=== PATIENT | male | born 1930 | race Caucasian/White ===

== ENCOUNTER 2017-04-02 15:44 | Observation (INO) ==
--- NOTE | 2017-04-02 16:45 | Emergency Department Note ---
Disposition Clinical Impression: Acute on chronic renal insufficiency, Anticoagulated on Coumadin Concussion without loss of consciousness Qualifiers: Encounter type: initial encounter Qualified Code(s): S06.0X0A - Concussion without loss of consciousness, initial encounter Fall Qualifiers: Encounter type: initial encounter Qualified Code(s): W19.XXXA - Unspecified fall, initial encounter Laceration of head Qualifiers: Encounter type: initial encounter Location of open wound of head: scalp Foreign body presence: without foreign body Qualified Code(s): S01.01XA - Laceration without foreign body of scalp, initial encounter Disposition: Admitted As Inpatient Condition: Fair Referrals: Travon Cardenas DO [Primary Care Provider] - Forms: ED Satisfaction Letter Time of Disposition: 18:49 Fall HPI - General Chief Complaint: ED Fall Stated Complaint: Fall Time Seen by Provider: 04/02/17 15:46 Source: patient Mode of arrival: EMS Limitations: age Nursing Notes Reviewed: Yes Vital Signs Reviewed: Yes - History of Present Illness HPI Narrative: 86-year-old male history of atrial fibrillation, status post mechanical fall where he tripped on his legs, he fell down and hit the cement with his head. He sustained a laceration to the top of his head. He is brought in by EMS. Patient states he is unsure if he lost consciousness for the fall. Patient also has no neurologic deficits is able to ambulate He denies any pain or injury elsewhere he denies any chest pain shortness of breath abdominal pain. Patient states that he has no slurred speech has no gait weakness. He has been compliant with his Coumadin. Pt Subjective Complaint: fall Onset (ago): Just APPEALS EXAMINER Fall From: standing Place Fall Occurred: home Loss of Consciousness: unsure Prolonged Down Time?: no Context: tripped/slipped Location of injury: head Severity: mild Severity scale (1-10): 3 Associated symptoms (after fall): Reports: headache. Denies: neck pain, numbness, weakness, chest pain, shortness of breath, abdominal pain - Related Data Allergies Allergy/AdvReac Type Severity Reaction Status Date / Time No Known Allergies Allergy Verified 09/27/15 05:31 All systems ED: reviewed and negative except as stated. Review of Systems: As Per HPI Constitutional: Denies: fever, chills Eyes: Denies: eye pain, eye discharge ENT ED: Denies: ear pain, congestion Cardiovascular: Denies: chest pain Respiratory: Denies: cough, dyspnea Gastrointestinal: Denies: abdominal pain Genitourinary: Reports: as per HPI Musculoskeletal: Reports: as per HPI Integumentary: Reports: lesions Neurological: Reports: headache Fall PMH - Past Medical History Medical history: Reports: CVA, hypertension, other Surgical history: Reports: cholecystectomy Psychiatric history: Reports: no psych history - Social History Smoking Status: Former smoker Alcohol use: Reports: none Drug use: Reports: none Physical Exam - General Limitations: no limitations General appearance: alert, in no apparent distress - Expanded Head Exam Head exam physicial: Present: laceration - Eye Eye exam: Present: normal appearance, PERRL - ENT ENT exam: normal exam, normal oropharynx - Neck Neck exam: Present: normal inspection, full ROM - Chest Chest inspection: Present: normal inspection, symmetric chest wall rise - Respiratory Respiratory exam: Present: normal lung sounds bilaterally. Absent: respiratory distress - Cardiovascular Cardiovascular exam: Present: regular rate, normal rhythm - Abdominal Exam Abdominal exam: Present: soft, Non-Tender - Extremities Exam Extremities exam: Present: normal inspection, full ROM - Expanded Lower Extremity Exam Hip/Pelvis exam: Present: normal inspection, full ROM Course Course Narrative: 86-year-old male that is concerning given that he had a mechanical fall but he is 86 years old is on Coumadin and has a history of A. fib, he states that it was not syncopal, we will give basic lab work, CT head and neck placed her placed in a cervical spine collar, plan for repair of his laceration was had tetanus was given also Ancef. - Reevaluation(s) Reevaluation #1: Patient cervical spine was cleared after negative CT imaging, his wound was repaired, I did speak with the hospitalist Dr. Ruby patient will be admitted for observation given fall probable concussion, head laceration and Coumadin Time: 18:48 Vital Signs Temperature 97.6 F 04/02/17 15:46 Pulse Rate 115 04/02/17 15:46 Respiratory Rate 14 04/02/17 15:46 Blood Pressure 177/108 04/02/17 15:46 O2 Sat by Pulse Oximetry 98 04/02/17 15:46 Temperature 97.6 F 04/02/17 15:46 Pulse Rate 115 04/02/17 15:46 Respiratory Rate 14 04/02/17 15:46 Blood Pressure 177/108 04/02/17 15:46 O2 Sat by Pulse Oximetry 98 04/02/17 15:46 Oxygen Delivery Oxygen Delivery Room Air Procedures - Laceration Laceration 1 Site: scalp Side (If applicable): right Size (cm): 6 Description: linear, irregular Depth: simple, single layer Local Anesthetic: lidocaine 1%, with epi Amount of Anesthesia Used (mL): 7 Pre-repair: wound explored, irrigated extensively, deep structures intact, extensive debridement Skin layer closed with: other (Prolene) Size: 4-0 Number of sutures/ofelia: 10 Technique: simple, interrupted Fall - Medical Records Medical records reviewed: Yes I reviewed the patient's medical records. - Lab Data Lab results reviewed: Yes I reviewed the patient's lab results. Result diagrams: 04/02/17 17:23 04/02/17 17:23 Lab Results 04/02/17 04/02/17 04/02/17 Range/Units 17:23 17:23 17:23 WBC 6.5 (4.3-11.1) K/mcL RBC 4.77 (4.19-5.50) M/mcL Hgb 15.2 (12.9-16.9) g/dL Hct 46.7 (37.5-50.1) % MCV 97.9 (83.0-100.0) fL MCH 31.9 (28.0-33.3) pg MCHC 32.5 (31.6-35.5) g/dL RDW 14.2 (11.5-14.5) % Plt Count 139 L (140-400) K/mcL MPV 10.2 (9.4-12.4) fL Immature Gran % 0.3 (0-4) % Seg Neutrophils % 65.9 % Lymphocytes % 19.5 % Monocytes % 10.0 % Eosinophils % 3.8 % Basophils % 0.5 % Neutrophils # 4.3 (1.6-8.9) K/mcL Lymphocytes # 1.3 (0.6-4.6) K/mcL Monocytes # 0.7 (0.0-1.3) K/mcL Eosinophils # 0.3 (0.0-0.6) K/mcL Basophils # 0.0 (0.0-0.2) K/mcL PT 28.6 H (9.4-12.1) Seconds INR 2.6 APTT 35.9 (26.0-36.0) Seconds Sodium 141 (136-145) mEq/L Potassium 4.6 (3.5-5.1) mEq/L Chloride 111 H (98-107) mEq/L Carbon Dioxide 23 (23-29) mEq/L BUN 39 H (8-23) mg/dL Creatinine 2.12 H (0.70-1.30) mg/dL Est GFR ( Amer) 36 L (> 60) Est GFR (Non-Af Amer) 30 L (> 60) BUN/Creatinine Ratio 18 (6-26) Glucose 127 H (70-105) mg/dL Calculated Osmolality 303 H (280-300) Calcium 8.5 L (8.6-10.3) mg/dL - Radiology Data Radiology results reviewed: Yes I reviewed the patient's radiology results. Cervical Spine CT 04/02/17 16:01 IMPRESSION: No acute abnormality of the cervical spine. D/ / Denise Collazo Cha, MD / Denise Collazo Cha, MD Interpreting Provider: Denise Collazo Cha, MD Head CT 04/02/17 16:01 IMPRESSION: No acute intracranial abnormality. D/ / Koby Bower MD / Koby Bower MD Interpreting Provider: Koby Bower MD - EKG Data EKG attestation: Yes I reviewed and interpreted this EKG. Rhythm: A.Fib (A. fib 61 bpm QRS 161 QTC [address] segment elevations or depressions, right bundle-branch blocks and a previous EKG) Interpretation: nonspecific ST-T wave changes - Core Measures AMI Core Measures Followed: No Attestation Statement - Attestation Attestation: I examined this patient and my medical decision-making was reviewed with the Resident Physician, Dr. Jackson. I agree with the documented findings, disposition and treatment plan as described except to the extent set forth below. Patient is a 6-year-old elderly white male who is brought to the emergency department by friends after he sustained a mechanical fall. Patient states he was outside and bent over and just lost his footing causing him to fall forward hitting his head on the concrete. Patient is on Coumadin. Patient's witnessed the fall and states that she thinks he hit the top of his head along a cement curb. Patient sustained a scalp laceration that had some mild wheezing on arrival. Patient denies any syncope or lightheadedness causing the fall, no symptoms at the time of the fall are following. She denies any loss of consciousness. Patient denies any visual changes, no nausea vomiting, no neck pain, no other associated injuries related to the fall. The patient's physical exam findings as documented. Patient's GCS equals 15 and he is awake alert and oriented without focal neuro deficits. Patient had a tetanus update a dressing placed temporarily over the wound after evaluation. Placed in a cervical collar and was sent for CT imaging of the head and neck. CT imaging was unremarkable. Patient's labs show a therapeutic INR. Patient had his laceration repaired please see procedure note. Due to the patient being on Coumadin and sustaining a head injury we recommended he be observed overnight for serial neuro exams and possible repeat imaging. This was discussed with the hospitalist who accepted the patient for admission.
[2017-04-02] MEDS ORDERED: Lidocaine/EPI 1:100k 1% 20 ML VIAL INFILT ONE (17:14)
[2017-04-02] MEDS ORDERED: Tdap (Boostrix) Vaccine 0.5 ML SYRINGE IM ONE (17:24)
[2017-04-02] MEDS ORDERED: ceFAZolin 1,000 MG in Water for inj. (sterile) 10 ML IVP ONE (17:28)
[2017-04-02 17:30] LABS: Basophils % 0.5 %; Eosinophils # 0.3 K/mcL (0.0-0.6); Eosinophils % 3.8 %; Hematocrit 46.7 % (37.5-50.1); Hemoglobin 15.2 g/dL (12.9-16.9); Immature Granulocytes % 0.3 % (0-4); Lymphocytes # 1.3 K/mcL (0.6-4.6); Lymphocytes % 19.5 %; Mean Corpuscular HGB Conc 32.5 g/dL (31.6-35.5); Mean Corpuscular Hemoglobin 31.9 pg (28.0-33.3); Mean Corpuscular Volume 97.9 fL (83.0-100.0); Mean Platelet Volume 10.2 fL (9.4-12.4); Monocytes # 0.7 K/mcL (0.0-1.3); Neutrophils # 4.3 K/mcL (1.6-8.9); Platelet Count 139 K/mcL (140-400); Red Blood Count 4.77 M/mcL (4.19-5.50); Red Cell Distribution Width 14.2 % (11.5-14.5); Segmented Neutrophils % 65.9 %
[2017-04-02 17:36] LABS: INR 2.6; Prothrombin Time 28.6 Seconds (9.4-12.1)
[2017-04-02 17:39] LABS: Activated Partial Thrombo Time 35.9 Seconds (26.0-36.0)
[2017-04-02 17:48] LABS: Calcium 8.5 mg/dL (8.6-10.3); Potassium 4.6 mEq/L (3.5-5.1)
[2017-04-02] MEDS ORDERED: ceFAZolin 1,000 MG in Water for inj. (sterile) 20 ML 10 ML IVP ONE (19:00)
[2017-04-02] MEDS ORDERED: *HR* HYDROcodone/Acet 5/325 mg TABLET PO PRN (20:14)
[2017-04-02] MEDS ORDERED: Naloxone 0.4 MG/ML INJ IVP PRN (20:14)
[2017-04-02] MEDS ORDERED: Acetaminophen 325 MG TABLET PO PRN (20:14)
[2017-04-02] MEDS ORDERED: *HR* Morphine 2 MG/ML SYRINGE IVP PRN (20:14)
[2017-04-02] MEDS ORDERED: Ondansetron 4 MG/2 ML VIAL IVP PRN (20:14)
--- NOTE | 2017-04-02 20:26 | Internal Med History&Physical ---
<Jim Scott - Last Filed: 04/02/17 21:05> Date of Encounter: 04/02/17 Time of Encounter: 19:45 Assessment and Plan (1) Fall Current visit: Yes Status: Acute Acute fall sustained tonight when pt. reports he was retrieving newspaper from front porch. Pt. states his legs became tangled when he turned to go inside. Denies LOC, pre-syncope, dizziness, lightheadedness, or previous hx of falls. Pt. sustained laceration to top of head and right knee. CT of the head/brain w/ o contrast shows no acute intracranial abnormality. CT of the cervical spine shows no acute abnormality of the cervical spine. 3-View XR of the right knee ordered. Falls/safety precautions ordered. PT/OT consults ordered to assess pt. for ambulation strength, stability, and safety for post-discharge planning. Will continue pts. Coumadin w/pharmacy dosing and monitor for signs of bleeding. Pt. discussed w/Dr. Parsons who is in agreement w/plan of care. Pt. is high risk for further morbidity d/t recent fall on anticoagulation, current HTN and tachycardia, hx, and risk factors. Observation. Qualifiers: Encounter type: initial encounter Qualified Code(s): W19.XXXA - Unspecified fall, initial encounter (2) Laceration of head Current visit: Yes Status: Acute Acute laceration to top of head sustained from fall tonight. Pt. is currently anticoagulated w/Coumadin. Pt. received Tdap Boostrix in ED. CT of the head/ brain without contrast today shows no acute intracranial abnormality. Neuro checks Q2HR. Will monitor pt. for neuro changes and/or bleeding. Falls/safety precautions. Qualifiers: Encounter type: initial encounter Location of open wound of head: scalp Foreign body presence: without foreign body Qualified Code(s): S01.01XA - Laceration without foreign body of scalp, initial encounter (3) Right knee injury Current visit: Yes Status: Acute Acute injury to right knee sustained from fall tonight. Knee is erythematous and edematous on exam. 3-View XR ordered. Qualifiers: Encounter type: initial encounter Qualified Code(s): S89.91XA - Unspecified injury of right lower leg, initial encounter (4) Hypocalcemia Current visit: Yes Status: Acute Acute hypocalcemia w/calcium of 8.5 on admission. PO calcium carbonate 1,000 mg TID. Monitor f/u labs. (5) Hyperglycemia Current visit: Yes Status: Acute Acute hyperglycemia on admission. Pt. denies hx of DM. BG checks Q6 w/ communication order to discontinue after normal BG. A1c in a.m. labs. (6) CKD (chronic kidney disease) stage 3, GFR 30-59 ml/min Current visit: Yes Status: Chronic Hx of CKD. Pt. is currently stage 3 w/GFR of 30 and creatinine of 2.12. Will use IV fluids judiciously if warranted and avoid nephrotoxins. Monitor I&O. (7) HTN (hypertension) Current visit: Yes Status: Chronic Hx of chronic HTN. Monitor pt. and VS. continue patient's amlodipine and metoprolol. Hypertension on admission with BPs 177/108 and 165/105 most recent. We will add lisinopril 10 mg no. Hydralazine 10 mg every 6 when necessary SBP greater than 160 and/or DBP greater than 95. Patient is tachycardic on admission so will administer home dosing of metoprolol now. Continuous cardiac telemetry. Qualifiers: Hypertension type: essential hypertension Qualified Code(s): I10 - Essential (primary) hypertension (8) HLD (hyperlipidemia) Current visit: Yes Status: Chronic Hx of chronic HLD. Lipid panel in a.m. labs. Continue pts. Lovastatin. Qualifiers: Hyperlipidemia type: pure hypercholesterolemia Qualified Code(s): E78.00 - Pure hypercholesterolemia, unspecified; E78.0 - Pure hypercholesterolemia (9) GERD (gastroesophageal reflux disease) Current visit: Yes Status: Chronic Hx of chronic GERD. IVP Zofran 4 mg Q8 for N/V. Continue patient's Prilosec. Qualifiers: Esophagitis presence: esophagitis presence not specified Qualified Code(s) : K21.9 - Gastro-esophageal reflux disease without esophagitis (10) DVT prophylaxis Current visit: Yes Status: Acute Continue patient's Coumadin with pharmacy dosing for DVT prophylaxis. Monitor patient for signs of bleeding d/t fall. Internal Medicine - H&P: HPI Chief complaint: Fall Admitted From: Emergency Dept Plans for Post Hospital Care: Home History of present illness: Mr. Levi is a 86 year old male with medical hx of previous strokes 2 in 2008 2013, chronic kidney disease, chronic heart murmur, HLD, and HTN presents from the ED with chief complaint of fall that occurred this evening. Patient states he went out to [employer] to retrieve newspaper and fell when he turned to go back into the house. Patient denies previous history of falls, loss of consciousness, feelings of presyncope, dizziness, or lightheadedness. Patient reports cough but denies recent illness, fever, chills, nausea, vomiting, changes in vision, headache, weakness, fatigue, chest pain, palpitations, unusual bleeding, abdominal pain, dizziness, lightheadedness, numbness, tingling , pre-syncope, or syncope. Past Med Surg Social Fam HX - Past Medical History Source: patient, old records reviewed, obtained from family Medical history: CVA (x2 in 2008 and 2013), hyperlipidemia, hypertension, renal disease, other Psychiatric history: no psych history - Past Surgical History Surgical History: cholecystectomy - Social History Smoking Status: Former smoker Smokeless Tobacco Status: No Alcohol use: none Drug use: none Current living situation: Home Activity Level: Independent ambulation Recent Out of Country Travel Within the Last 8 Weeks: No Exposure or Possible Exposure to Illness During Travel: No - Family History Father Race: Family Member Ethnicity: Non- Living Status: Age at : 68 Cause of : Stroke Hx Family Cardiac Disorders: Yes (Stroke) Mother Race: Family Member Ethnicity: Non- Living Status: Age at : 35 Cause of : Pneumonia Hx Family Respiratory Disorders: Yes (Pneumonia) Brother Race: Family Member Ethnicity: Non- Living Status: Age at : 88 Cause of : OR Hx Family Cardiac Disorders: Yes (OR, CAD) Sister Race: Family Member Ethnicity: Non- Living Status: Age at : 86 Cause of : Pancreatic cancer Hx Family Cancer: Yes (Pancreatic) Internal Medicine - H&P: Meds Amlodipine Besylate 10 mg PO 04/02/17 [History] Aspirin [Lo-Dose Aspirin EC] 81 mg PO 04/02/17 [History] Lovastatin [Altoprev] 40 mg PO 04/02/17 [History] Metoprolol [Lopressor] 100 mg PO 04/02/17 [History] Omeprazole [PriLOSEC] 20 mg PO DAILY 04/02/17 [History] Warfarin [Coumadin] 4 mg PO 1800 04/02/17 [History] Warfarin [Coumadin] 5 mg PO 1800 04/02/17 [History] 3 Allergy/AdvReac Type Severity Reaction Status Date / Time No Known Allergies Allergy Verified 09/27/15 05:31 All Systems PM: A 10-system review of systems was performed and is negative for pertinent findings except as documented above in the HPI. - Constitutional Constitutional: no chills, no fever(s), no night sweats - EENT Eyes: no change in vision, no discharge, no pain, no photophobia Ears: no ear discharge, no ear pain, no tinnitus Nose, mouth and throat: no dysphagia, no nasal discharge, no neck pain, no sore throat - Breasts Breasts: as per HPI - Cardiovascular Cardiovascular ROS IM: as per HPI, irregular heart rhythm, no chest pain, no diaphoresis, no dyspnea, no lightheadedness, no palpitations, no syncope - Respiratory Respiratory: as per HPI, cough, no dyspnea, no wheezing, no excessive phlegm production - Gastrointestinal Gastrointestinal: no abdominal pain, no diarrhea, no hematemesis, no hematochezia, no melena, no nausea, no vomiting - Genitourinary Genitourinary ROS male: as per HPI - Musculoskeletal Musculoskeletal ROS IM: no numbness, no tingling - Integumentary Integumentary IM: erythema (Top of head and right knee r/t fall tonight), no rash, no unusual bruising - Neurological Neurological ROS: no confusion, no convulsions, no focal weakness, no numbness, no tingling, no tremor(s) - Psychiatric Psychiatric: as per HPI - Endocrine Endocrine IM: as per HPI - Hematologic/Lymphatic Hematologic/Lymphatic: no easy bruising - Allergic/Immunologic Allergic/Immunologic: as per HPI - Constitutional Vitals: Temp Pulse Resp BP Pulse Ox 97.6 F 115 14 165/105 98 04/02/17 15:46 04/02/17 15:46 04/02/17 19:32 04/02/17 19:32 04/02/17 15:46 General appearance: Present: cooperative, A&O X 3, pleasant, no acute distress, answers questions appropriately - Head Additional comments: Top of head has laceration with dried blood on exam. Pt. reports he struck his head when he fell. - Eye Eye exam: Present: PERRL, conjuntiva pink, sclera anicteric Pupils: Present: PERRL - ENT ENT exam: Present: normal exam - Neck Neck exam general surgery: Present: normal inspection, supple, trachea midline. Absent: lymphadenopathy - Respiratory Respiratory exam: Present: CTAB. Absent: accessory muscle use, rales, rhonchi, wheezes - Cardiovascular Cardiovascular exam: Present: irregular rhythm - GI/Abdominal GI/Abdominal exam: Present: normal bowel sounds, soft, no peritoneal signs. Absent: distended, tenderness - Rectal Rectal exam: Present: deferred - Additional comments: exam deferred. - Extremities Exam Extremities exam: Present: tenderness (Right knee is erythematous and edematous from fall), warm, radial pulses palpable and symmetrical. Absent: calf tenderness, cyanotic, pedal edema - Back Exam Back exam: Present: normal inspection - Neurological Exam Neurological exam: Present: CN II-XII intact, oriented X3, no focal deficits. Absent: pronater drift, facial droop, speech deficit - Psychiatric Psychiatric exam: Present: normal affect, normal mood - Skin Skin exam: Present: dry, intact Internal Med - H&P Results - Labs CBC & Chem 7: 04/02/17 17:23 04/02/17 17:23 - Diagnostic Studies CT scan - head Additional comments: Impressions Head CT 04/02/17 16:01 IMPRESSION: No acute intracranial abnormality. D/ / Koby Bower MD / Koby Bower MD Interpreting Provider: Koby Bower MD Other Images Additional comments: Impressions Cervical Spine CT 04/02/17 16:01 IMPRESSION: No acute abnormality of the cervical spine. D/ / Denise Collazo Cha, MD / Denise Collazo Cha, MD Interpreting Provider: Denise Collazo Cha, MD <Jakub Sabillon H - Last Filed: 04/02/17 21:14> Date of Encounter: 04/02/17 Internal Medicine - H&P: HPI History of present illness: Mr. Levi is a 86 year old male All Systems PM: A 10-system review of systems was performed and is negative for pertinent findings except as documented above in the HPI. - Constitutional Vitals: Temp Pulse Resp BP Pulse Ox 97.6 F 115 14 165/105 98 04/02/17 15:46 04/02/17 15:46 04/02/17 19:32 04/02/17 19:32 04/02/17 15:46 Internal Med - H&P Results - Labs CBC & Chem 7: 04/02/17 17:23 04/02/17 17:23 - Attending Attestation 1. Head trauma/scalp laceration, sutured in the ER with perfuse bleeding secondary to elevated INR Monitor tonight, fall precautions 2. Right knee injury, x-rays have been ordered 3. History of CVA on Coumadin 4. Chronic kidney disease stage III, stable with a creatinine close to baseline 5. Hypertension, add hydralazine IV as needed and start lisinopril 10 mg daily Omeprazole for GI prophylaxis and Coumadin for DVT prophylaxis. The patient will be admitted for observation. Full code. Time spent on this admission 40 minutes I examined this patient and my medical decision-making was reviewed with the Resident Physician. I agree with the documented findings, disposition and treatment plan as described except to the extent set forth below.
--- NOTE | 2017-04-02 20:49 | Event Note ---
Date of Encounter: 04/02/17 Time of Encounter: 20:47 1. Head trauma/scalp laceration, sutured in the ER with perfuse bleeding secondary to elevated INR Monitor tonight, fall precautions 2. Right knee injury, x-rays have been ordered 3. History of CVA on Coumadin 4. Chronic kidney disease stage III, stable with a creatinine close to baseline 5. Hypertension, add hydralazine IV as needed and start lisinopril 10 mg daily Omeprazole for GI prophylaxis and Coumadin for DVT prophylaxis. The patient will be admitted for observation. Full code. Time spent on this admission 40 minutes H&P will be completed by Jim Scott NP
[2017-04-03 06:31] LABS: Basophils % 0.5 %; Eosinophils # 0.3 K/mcL (0.0-0.6); Eosinophils % 3.4 %; Hematocrit 46.9 % (37.5-50.1); Hemoglobin 15.5 g/dL (12.9-16.9); Immature Granulocytes % 0.3 % (0-4); Lymphocytes # 1.6 K/mcL (0.6-4.6); Lymphocytes % 20.3 %; Mean Corpuscular Hemoglobin 32.1 pg (28.0-33.3); Mean Corpuscular Volume 97.1 fL (83.0-100.0); Mean Platelet Volume 10.2 fL (9.4-12.4); Monocytes # 0.8 K/mcL (0.0-1.3); Monocytes % 9.7 %; Neutrophils # 5.2 K/mcL (1.6-8.9); Platelet Count 137 K/mcL (140-400); Red Blood Count 4.83 M/mcL (4.19-5.50); Red Cell Distribution Width 14.3 % (11.5-14.5); Segmented Neutrophils % 65.8 %
[2017-04-03 06:33] LABS: Hemoglobin A1C 5.3 %
[2017-04-03 06:39] LABS: Albumin 3.4 g/dL (3.5-5.7); Albumin/Globulin Ratio 0.9 (1.1-2.2); Bilirubin,Total 0.8 mg/dL (0.3-1.0); Calcium 8.8 mg/dL (8.6-10.3); Chol/HDL Ratio 4.9 (0-4.9); Globulin 3.6 g/dL (2.4-3.5); Magnesium 2.1 mg/dL (1.6-2.6); Potassium 4.1 mEq/L (3.5-5.1)
[2017-04-03 06:46] LABS: INR 2.3; Prothrombin Time 25.7 Seconds (9.4-12.1)
[2017-04-03 06:49] LABS: Activated Partial Thrombo Time 33.4 Seconds (26.0-36.0)
--- NOTE | 2017-04-03 09:48 | Electrocardiograph Report ---
[place] [id number] Test Date: 2017-04-02 Pat Name: Oniel Levi Department: 104 Room: 3B13 Gender: M Nickel Operator: : 1930 Requested By: Clemente Jackson Order Number: [id number] Reading MD: Bethany Fofana Measurements Intervals [place] Rate: 61 P: GA: 0 QRS: -57 QRSD: 161 T: -30 QT: 423 QTc: 426 Interpretive Statements ATRIAL FIBRILLATION RIGHT BUNDLE BRANCH BLOCK [120+ ms QRS DURATION, UPRIGHT V1, 40+ ms S IN I/aVL/V4/V5/V6] INFERIOR MYOCARDIAL INFARCTION [40+ ms Q WAVE AND/OR ST/T ABNORMALITY IN II/aVF], OF INDETERMINATE AGE Electronically Signed On 04-03-2017 9:46:33 EST by Bethany Fofana
[2017-04-03] MEDS ORDERED: Warfarin perPT PO PRN (18:00)
[2017-04-03] MEDS ORDERED: *HR* Warfarin 4 MG TABLET PO ONE (18:00)
--- NOTE | 2017-04-03 18:09 | Discharge Summary ---
Date of Encounter: 04/03/17 Time of Encounter: 11:00 - Discharge Diagnosis (1) Fall Priority: Primary Status: Acute Qualifiers: Encounter type: initial encounter Qualified Code(s): W19.XXXA - Unspecified fall, initial encounter - Discharge Medications Home Medications: Aspirin [Lo-Dose Aspirin EC] 81 mg PO DAILY 04/02/17 [History] Metoprolol [Lopressor] 200 mg PO DAILY 04/02/17 [History] Omeprazole [PriLOSEC] 40 mg PO DAILY 04/02/17 [History] Warfarin [Coumadin] 4 mg PO Q48H 04/02/17 [History] Warfarin [Coumadin] 5 mg PO Q48H 04/02/17 [History] Amlodipine Besylate/Benazepril [Lotrel 5-20 mg Capsule] 1 each PO DAILY [History] Lovastatin 40 mg PO HS 04/03/17 [History] Allergies/Adverse Reactions: 3 Allergy/AdvReac Type Severity Reaction Status Date / Time No Known Allergies Allergy Verified 09/27/15 05:31 Date of admission: 04/02/17 19:05 Primary care physician: Travon Cardenas Consults: 04/02/17 20:16 Consult to Occupational Therapy [CONS] Routine Comment: Evaluate, develop and implement POC Reason for Consult: Patient had fall today injuring head and right knee. Please assess patient for ambulation strength, stability, safety, and possible home assistive needs for post-discharge planning. Consult to Banquet Kitchen Supervisor [CONS] Routine Reason for SW Consult: Please assess patient for possible home needs for post -discharge planning. 04/02/17 20:18 Consult to Physical Therapy [CONS] Routine Comment: Evaluate, develop and implement POC Reason for Consult: Patient had fall today injuring head and right knee. Please assess patient for ambulation strength, stability, safety, and possible home assistive needs for post-discharge planning. - Patient Status Disposition: Home Health Service Condition: Fair - Discharge Instructions Follow Up With: Travon Cardenas DO [Primary Care Provider] - Hospital course: Patient is an 86-year-old male with past medical history significant for 2 prior strokes in 2008 and 2013 in addition of CJD, HLD and hypertension who presented to the ER on 04/02/17 due to mechanical fall. Patient states he went out to porch to retrieve newspaper and fell when he turned to go back into the house. Patient denies previous history of falls, loss of consciousness, feelings of presyncope, dizziness, or lightheadedness. In the ER, patient was found to have a scalp laceration which was sutured. No acute finding on imaging. Patient was admitted to the medical floor for further management. During patients hospital stay physical therapy evaluated patient with recommendations for home health. He will be discharged to follow up with his primary care provider. - Time Spent with Patient Total time spent providing and/or coordinating discharge services: Less than 30 minutes - Constitutional Vitals: Temp Pulse Resp BP Pulse Ox 98.3 F 99 16 138/92 94 04/03/17 15:01 04/03/17 15:01 04/03/17 15:01 04/03/17 15:01 04/03/17 15:01 General appearance: Present: cooperative, A&O X 3, pleasant, no acute distress, answers questions appropriately - Respiratory Respiratory exam: Present: CTAB. Absent: accessory muscle use, rales, rhonchi, wheezes - Cardiovascular Cardiovascular exam: Present: RRR, +S1, +S2. Absent: diastolic murmur, gallop, rubs, systolic murmur
[2017-04-03 18:29] VITALS: BP 122/71
--- NOTE | 2017-04-07 09:15 | Physician Discharge Referral ---
Home Health/Hosp Referral Info Attending Provider: Dr Rob Walker - Diagnosis (1) Fall Priority: Primary Status: Acute (2) HLD (hyperlipidemia) Priority: Secondary Status: Chronic (3) HTN (hypertension) Priority: Secondary Status: Chronic - Respiratory Orders Smoking Cessation: Smoking cessation has been advised. For more information, call the [place] Tobacco Quit Line at 2-163-GEEO-NOW. - Services Needed Following services are medically necessary services: Nursing, Physical Therapy - Transfer Medications Home Medications: Aspirin [Lo-Dose Aspirin EC] 81 mg PO DAILY 04/02/17 [History] Metoprolol [Lopressor] 200 mg PO DAILY 04/02/17 [History] Omeprazole [PriLOSEC] 40 mg PO DAILY 04/02/17 [History] Warfarin [Coumadin] 4 mg PO Q48H 04/02/17 [History] Warfarin [Coumadin] 5 mg PO Q48H 04/02/17 [History] Amlodipine Besylate/Benazepril [Lotrel 5-20 mg Capsule] 1 each PO DAILY [History] Lovastatin 40 mg PO HS 04/03/17 [History] Allergies/Adverse Reactions: 3 Allergy/AdvReac Type Severity Reaction Status Date / Time No Known Allergies Allergy Verified 09/27/15 05:31 Certification: Further, I certify that my clinical findings support that this patient is homebound (i.e. absences from home require considerable and taxing effort and are for medical reasons or quaker services or infrequently or short duration when for other reasons) because: Homebound Reason: Leaving home requires considerable and taxing effort due to condition Attestation: My signature below is to certify that this patient is under my care and that I, or nurse practitioner, or a physician's occupational therapist assistants working with me, has a face-to -face encounter with this patient.
== END 2017-04-03 19:30 | disposition home health service (06) ==
LOC: 3BNU 15:44 → EMEROO 15:44 → SUATTDRO 19:05 → 3BNU 19:23
PROVIDERS: ADMIT Hospitalist; ATTEND Hospitalist

== ENCOUNTER 2018-04-02 08:38 | Inpatient (IN) ==
[2018-04-02] MEDS ORDERED: Isovue-370 500 ML INFUS..BTL IV ONE (08:59)
--- NOTE | 2018-04-02 09:00 | Emergency Department Note ---
Disposition Clinical Impression: Hypoxia Atrial fibrillation Qualifiers: Atrial fibrillation type: unspecified Qualified Code(s): I48.91 - Unspecified atrial fibrillation Disposition: Admitted As Inpatient Condition: Fair Referrals: Travon Cardenas DO [Primary Care Provider] - General Adult HPI - General Stated complaint: JESSENIA Time Seen by Provider: 04/02/18 08:39 Source: EMS Limitations: no limitations - History of Present Illness HPI Narrative: Patient is a 87-year-old male with medical hx of previous strokes 2 in 2008 2013,GERD, hypothyroidism, COPD (not on home O2) peripheral vascular disease, AAA, carotid stenosis , chronic A. fib (on Coumadin 4mg ) , chronic kidney disease, HLD, and HTN who presents to the ED because of shortness of breath. Patient endorses having shortness of breath, increase in the frequency of his cough along with productive white sputum for the past 6 weeks. Patient says he takes Ventolin HFA for his COPD symptoms and felt the need to use it more often the last couple days, but it's not been helping. Patient was treated for URI on 02/20/2018and completed course of Amoxycillin 875 mg for 7 days. He has not been hospitalized recently for his COPD symptoms. He denies any orthopnea, PND, but does endorse some having difficulty walking 2 blocks for the last couple weeks. Patient denies any recent travels and denies any systemic signs like fever, chest pain, diarrhea vomiting or nausea. Pain Scale: 0 - Related Data Home Medications Medication Instructions Recorded Confirmed Aspirin [Lo-Dose Aspirin EC] 81 mg PO DAILY 04/02/17 04/03/17 Metoprolol [Lopressor] 200 mg PO DAILY 04/02/17 04/03/17 Omeprazole [PriLOSEC] 40 mg PO DAILY 04/02/17 04/03/17 Warfarin [Coumadin] 4 mg PO Q48H 04/02/17 04/03/17 Amlodipine Besylate/Benazepril 1 each PO DAILY 04/03/17 04/03/17 [Lotrel 5-20 mg Capsule] Lovastatin 40 mg PO HS 04/03/17 04/03/17 Albuterol Sulfate [Ventolin Hfa] 2 puff IH Q6H PRN 04/02/18 04/02/18 Levothyroxine [Synthroid] 25 mcg PO DAILY 04/02/18 04/02/18 Multivitamin [One Daily Essential] 1 tab PO DAILY 04/02/18 04/02/18 Allergies Allergy/AdvReac Type Severity Reaction Status Date / Time No Known Allergies Allergy Verified 09/27/15 05:31 Constitutional: Denies: fever Cardiovascular: Denies: chest pain Respiratory: Reports: cough, wheezes. Denies: hemoptysis Gastrointestinal: Denies: abdominal pain Genitourinary: Denies: urgency Musculoskeletal: Denies: back pain Integumentary: Denies: rash Neurological: Denies: headache Psychiatric: Denies: anxiety Endocrine: Denies: fatigue Past Medical History - Past Medical History Medical history: Reports: atrial fibrillation, CVA, hyperlipidemia, hypertension , renal disease, other Surgical history: Reports: cholecystectomy Psychiatric history: Reports: no psych history - Social History Smoking Status: Former smoker Smokeless Tobacco Status: No Alcohol use: Reports: none Drug use: Reports: none Physical Exam Gen.: Vitals noted. No acute distress. Alert, awake and oriented * [address], [address], and time, well developed, well-nourished resting comfortably in bed. HEENT: oropharynx clear, Normocephalic, atraumatic, MMM. Neck: supple, no JVD, no lymphadenopathy, no carotid bruit. Cardiac: irregular, no murmur, +S1/S2, No BLE edema, PMI non-displaced Pulmonary: bilaterally expiratory wheezes, decreased breath sounds bilaterally, no rales or rhonchi. Abdomen: soft, nontender, BS noted, no guarding, mildly distended. No organomegaly, no pulsatile masses, Back: no Bilateral flank tenderness, no suprapubic pain Skin: warm and dry, no visible lesions. Feels warm, clammy, no rashes, no lesions, no erythema MSK: ROM not assessed. no joint swelling noted, gait not assessed while in bed. Non tender calf or clubbing, no cyanosis/clubbing. Bilateral edema (L >R) Neuro: A&O, moves all extremities, no focal deficits, sensation intact Psych: Appropriate mood and behavior, normal speech. - General Limitations: no limitations General appearance: alert Course Vital Signs Temperature 97.6 F 04/02/18 08:42 Pulse Rate 130 04/02/18 08:42 Respiratory Rate 26 04/02/18 08:42 Blood Pressure 187/112 04/02/18 08:42 O2 Sat by Pulse Oximetry 95 04/02/18 08:42 Temperature 97.6 F 04/02/18 08:42 Pulse Rate 115 04/02/18 12:15 Respiratory Rate 26 04/02/18 12:15 Blood Pressure 148/101 04/02/18 12:15 O2 Sat by Pulse Oximetry 100 04/02/18 12:15 Oxygen Delivery Oxygen Delivery Bipap Medical Decision Making - [facility] Narrative Medical decision making narrative: 0940 : Patient's chest x-ray showed interval increase in size in the right- sided pleural effusion with the likely unchanged small left pleural effusion. CXR also showed bibasilar atelectasis more on the right than left. 1005: Patient's initial workup showed that his white blood count and lactic acid was normal. Patient's BNP was elevated at 459. Results from the CTA showed multifocal bibasilar consolidation, along with concerns for mucous plug. Bronchoscopy was warranted by the radiologist. Patient was given IV Lasix and Nitroglycerine for his pulmonary edema. 1115: Spoke to Dr Kevin Fink about patient's CTA findings and he'll evaluate the patient once admitted. Patient was started on vancomycin and Zosyn for his multifocal pneumonia. He's on BiPAP to help with his V/Q mismatch (secondary to his multifocal pneumonia and pleural effusion). 1156: spoke to the admitting hospitalist Dr Celaya and patient will be admitted for further management. Patient's most recent heart rate was 137 and will be given 10mg IV Labetolol. 1243: Patient's venous Doppler of lower extremity was negative for evidence of DVT or SVT. Patient presents to the ED because of progressively increasing cough and white sputum for the past 6 weeks. He says his bronchodilators have not helped him with his symptoms the last few days. Patient is tachycardic, tachypnic and on physical exam he has bilateral expiratory wheezing and edema in lower extremities left more than right with concerns for PNA/CHF/DVT. Patient meets 2/ 4 SIRS criteria in the ED (HR: 130, RR: 26). With his WELLS' score of 4.5 today ( 3 points for PE being the most likely diagnosis , 1.5 point for heart rate more than 100 ), we will get a CTA on him to rule any evidence of PE. We will also get a venous Doppler of the lower extremities to rule out any evidence of D VT. Patient endorses SOB when ambulating 2 blocks , therefore we will get a BNP on him to rule out any heart strain. Patient has an INR of 5.6, no evidence of any bleeding at the moment, and by guidelines no indications for any Vit K at the moment. Given his co-morbidities and clinical presentation, patient will be admitted to the hospital for further evaluation. - Lab Data Result diagrams: 04/02/18 09:28 04/02/18 09:28 Lab Results 04/02/18 04/02/18 04/02/18 Range/Units 09:28 09:28 09:28 WBC 8.8 (4.3-11.1) K/mcL RBC 4.17 L (4.19-5.50) M/mcL Hgb 12.7 L (12.9-16.9) g/dL Hct 40.1 (37.5-50.1) % MCV 96.2 (83.0-100.0) fL MCH 30.5 (28.0-33.3) pg MCHC 31.7 (31.6-35.5) g/dL RDW 18.0 H (11.5-14.5) % Plt Count 179 (140-400) K/mcL MPV 10.0 (9.4-12.4) fL Immature Gran % 0.5 (0-4) % Seg Neutrophils % 83.3 % Lymphocytes % 8.6 % Monocytes % 5.9 % Eosinophils % 1.1 % Basophils % 0.6 % Neutrophils # 7.3 (1.6-8.9) K/mcL Lymphocytes # 0.8 (0.6-4.6) K/mcL Monocytes # 0.5 (0.0-1.3) K/mcL Eosinophils # 0.1 (0.0-0.6) K/mcL Basophils # 0.1 (0.0-0.2) K/mcL PT (9.4-12.1) Seconds INR APTT (26.0-36.0) Seconds Sodium 144 (136-145) mEq/L Potassium 3.6 (3.5-5.1) mEq/L Chloride 111 H (98-107) mEq/L Carbon Dioxide 21 L (23-29) mEq/L BUN 16 (8-23) mg/dL Creatinine 1.48 H (0.70-1.30) mg/dL Est GFR ( Amer) 54 L (> 60) Est GFR (Non-Af Amer) 45 L (> 60) BUN/Creatinine Ratio 11 (6-26) Glucose 111 H (70-105) mg/dL Calculated Osmolality 300 (280-300) Lactic Acid (0.5-2.2) mmol/L Calcium 8.0 L (8.6-10.3) mg/dL Phosphorus (2.7-4.5) mg/dL Magnesium (1.6-2.6) mg/dL Total Bilirubin (0.3-1.0) mg/dL Direct Bilirubin (0.0-0.2) mg/dL Indirect Bilirubin (0.0-1.2) mg/dL AST (13-39) Units/L ALT (7-52) Units/L Alkaline Phosphatase (34-104) Units/L Troponin I < 0.03 (< 0.04) ng/mL B-Natriuretic Peptide 459 H (Less than 100) pg/mL Serum Total Protein (6.4-8.9) g/dL Albumin (3.5-5.7) g/dL Globulin (2.4-3.5) g/dL Albumin/Globulin Ratio (1.1-2.2) Urine Color (Yellow) Urine Clarity (Clear) Urine pH (5.0-8.0) pH Units Ur Specific [place] (1.010-1.025) Urine Protein (Neg-Trace) mg/dL Urine Glucose (UA) (Normal) mg/dL Urine Ketones (Negative) mg/dL Urine Blood (Negative) Urine Nitrite (Negative) Urine Bilirubin (Negative) Urine Urobilinogen (Normal) mg/dL Ur Leukocyte Esterase (Negative) Urine Microscopic RBC (0-3) per hpf Urine Microscopic WBC (0-3) per hpf Ur Squamous Epith Cells (None-Few) per lpf Urine Bacteria (None-Few) per hpf Hyaline Casts (None-Few) per lpf Ur Culture Indicated? (NO) Blood Type Antibody Screen 04/02/18 04/02/18 04/02/18 Range/Units 09:28 09:28 09:28 WBC (4.3-11.1) K/mcL RBC (4.19-5.50) M/mcL Hgb (12.9-16.9) g/dL Hct (37.5-50.1) % MCV (83.0-100.0) fL MCH (28.0-33.3) pg MCHC (31.6-35.5) g/dL RDW (11.5-14.5) % Plt Count (140-400) K/mcL MPV (9.4-12.4) fL Immature Gran % (0-4) % Seg Neutrophils % % Lymphocytes % % Monocytes % % Eosinophils % % Basophils % % Neutrophils # (1.6-8.9) K/mcL Lymphocytes # (0.6-4.6) K/mcL Monocytes # (0.0-1.3) K/mcL Eosinophils # (0.0-0.6) K/mcL Basophils # (0.0-0.2) K/mcL PT 63.2 H* (9.4-12.1) Seconds INR 5.6 H* APTT 46.2 H (26.0-36.0) Seconds Sodium (136-145) mEq/L Potassium (3.5-5.1) mEq/L Chloride (98-107) mEq/L Carbon Dioxide (23-29) mEq/L BUN (8-23) mg/dL Creatinine (0.70-1.30) mg/dL Est GFR ( Amer) (> 60) Est GFR (Non-Af Amer) (> 60) BUN/Creatinine Ratio (6-26) Glucose (70-105) mg/dL Calculated Osmolality (280-300) Lactic Acid 1.3 (0.5-2.2) mmol/L Calcium (8.6-10.3) mg/dL Phosphorus 2.5 L (2.7-4.5) mg/dL Magnesium 1.1 L (1.6-2.6) mg/dL Total Bilirubin 0.8 (0.3-1.0) mg/dL Direct Bilirubin 0.2 (0.0-0.2) mg/dL Indirect Bilirubin 0.6 (0.0-1.2) mg/dL AST 19 (13-39) Units/L ALT 7 (7-52) Units/L Alkaline Phosphatase 68 (34-104) Units/L Troponin I (< 0.04) ng/mL B-Natriuretic Peptide (Less than 100) pg/mL Serum Total Protein 6.8 (6.4-8.9) g/dL Albumin 3.0 L (3.5-5.7) g/dL Globulin 3.8 H (2.4-3.5) g/dL Albumin/Globulin Ratio 0.8 L (1.1-2.2) Urine Color (Yellow) Urine Clarity (Clear) Urine pH (5.0-8.0) pH Units Ur Specific [place] (1.010-1.025) Urine Protein (Neg-Trace) mg/dL Urine Glucose (UA) (Normal) mg/dL Urine Ketones (Negative) mg/dL Urine Blood (Negative) Urine Nitrite (Negative) Urine Bilirubin (Negative) Urine Urobilinogen (Normal) mg/dL Ur Leukocyte Esterase (Negative) Urine Microscopic RBC (0-3) per hpf Urine Microscopic WBC (0-3) per hpf Ur Squamous Epith Cells (None-Few) per lpf Urine Bacteria (None-Few) per hpf Hyaline Casts (None-Few) per lpf Ur Culture Indicated? (NO) Blood Type Antibody Screen 04/02/18 04/02/18 Range/Units 09:28 09:56 WBC (4.3-11.1) K/mcL RBC (4.19-5.50) M/mcL Hgb (12.9-16.9) g/dL Hct (37.5-50.1) % MCV (83.0-100.0) fL MCH (28.0-33.3) pg MCHC (31.6-35.5) g/dL RDW (11.5-14.5) % Plt Count (140-400) K/mcL MPV (9.4-12.4) fL Immature Gran % (0-4) % Seg Neutrophils % % Lymphocytes % % Monocytes % % Eosinophils % % Basophils % % Neutrophils # (1.6-8.9) K/mcL Lymphocytes # (0.6-4.6) K/mcL Monocytes # (0.0-1.3) K/mcL Eosinophils # (0.0-0.6) K/mcL Basophils # (0.0-0.2) K/mcL PT (9.4-12.1) Seconds INR APTT (26.0-36.0) Seconds Sodium (136-145) mEq/L Potassium (3.5-5.1) mEq/L Chloride (98-107) mEq/L Carbon Dioxide (23-29) mEq/L BUN (8-23) mg/dL Creatinine (0.70-1.30) mg/dL Est GFR ( Amer) (> 60) Est GFR (Non-Af Amer) (> 60) BUN/Creatinine Ratio (6-26) Glucose (70-105) mg/dL Calculated Osmolality (280-300) Lactic Acid (0.5-2.2) mmol/L Calcium (8.6-10.3) mg/dL Phosphorus (2.7-4.5) mg/dL Magnesium (1.6-2.6) mg/dL Total Bilirubin (0.3-1.0) mg/dL Direct Bilirubin (0.0-0.2) mg/dL Indirect Bilirubin (0.0-1.2) mg/dL AST (13-39) Units/L ALT (7-52) Units/L Alkaline Phosphatase (34-104) Units/L Troponin I (< 0.04) ng/mL B-Natriuretic Peptide (Less than 100) pg/mL Serum Total Protein (6.4-8.9) g/dL Albumin (3.5-5.7) g/dL Globulin (2.4-3.5) g/dL Albumin/Globulin Ratio (1.1-2.2) Urine Color Yellow (Yellow) Urine Clarity Clear (Clear) Urine pH 6.0 (5.0-8.0) pH Units Ur Specific [place] 1.008 L (1.010-1.025) Urine Protein 30 H (Neg-Trace) mg/dL Urine Glucose (UA) Normal (Normal) mg/dL Urine Ketones Negative (Negative) mg/dL Urine Blood Small H (Negative) Urine Nitrite Negative (Negative) Urine Bilirubin Negative (Negative) Urine Urobilinogen Normal (Normal) mg/dL Ur Leukocyte Esterase Negative (Negative) Urine Microscopic RBC 5-15 H (0-3) per hpf Urine Microscopic WBC 5-15 H (0-3) per hpf Ur Squamous Epith Cells Many H (None-Few) per lpf Urine Bacteria None Seen (None-Few) per hpf Hyaline Casts None Seen (None-Few) per lpf Ur Culture Indicated? NO (NO) Blood Type O NEGATIVE Antibody Screen NEGATIVE - EKG Data EKG #1 EKG results narrative: Patient EKG showed HR: 138, RR: 436, GA: 55,QTc: 473. EKG showed wide QRS tachycardia, multiform ventricular premature complexes, RBBB, LAFB. The RBBB was present in his past EKG as well (09/27/2015) . No evidence of any ST-T changes, heart strain, heart block, HOCM, LVH, WPW, or Brugada asyndrome.
[2018-04-02] MEDS ORDERED: Aminoglycoside Consult 1 EACH MC ONE (09:36)
--- NOTE | 2018-04-02 09:38 | Emergency Department Note ---
Disposition Clinical Impression: Hypoxia Atrial fibrillation Qualifiers: Atrial fibrillation type: unspecified Qualified Code(s): I48.91 - Unspecified atrial fibrillation Disposition: Admitted As Inpatient Referrals: Travon Cardenas DO [Primary Care Provider] - General Adult HPI - General Chief complaint: ED Shortness of Breath/Dyspnea Stated complaint: JESSENIA Time Seen by Provider: 04/02/18 08:39 Source: EMS Limitations: no limitations - History of Present Illness Pain Scale: 0 - Related Data Home Medications Medication Instructions Recorded Confirmed Aspirin [Lo-Dose Aspirin EC] 81 mg PO DAILY 04/02/17 04/03/17 Metoprolol [Lopressor] 200 mg PO DAILY 04/02/17 04/03/17 Omeprazole [PriLOSEC] 40 mg PO DAILY 04/02/17 04/03/17 Warfarin [Coumadin] 4 mg PO Q48H 04/02/17 04/03/17 Warfarin [Coumadin] 5 mg PO Q48H 04/02/17 04/03/17 Amlodipine Besylate/Benazepril 1 each PO DAILY 04/03/17 04/03/17 [Lotrel 5-20 mg Capsule] Lovastatin 40 mg PO HS 04/03/17 04/03/17 Allergies Allergy/AdvReac Type Severity Reaction Status Date / Time No Known Allergies Allergy Verified 09/27/15 05:31 Constitutional: Denies: fever Cardiovascular: Denies: chest pain Respiratory: Reports: cough, wheezes. Denies: hemoptysis Gastrointestinal: Denies: abdominal pain Genitourinary: Denies: urgency Musculoskeletal: Denies: back pain Integumentary: Denies: rash Neurological: Denies: headache Psychiatric: Denies: anxiety Endocrine: Denies: fatigue Past Medical History - Past Medical History Medical history: Reports: atrial fibrillation, CVA, hyperlipidemia, hypertension, renal disease, other Surgical history: Reports: cholecystectomy Psychiatric history: Reports: no psych history - Social History Smoking Status: Former smoker Smokeless Tobacco Status: No Alcohol use: Reports: none Drug use: Reports: none Physical Exam - General Limitations: no limitations General appearance: alert Course Vital Signs Temperature 97.6 F 04/02/18 08:42 Pulse Rate 130 04/02/18 08:42 Respiratory Rate 26 04/02/18 08:42 Blood Pressure 187/112 04/02/18 08:42 O2 Sat by Pulse Oximetry 95 04/02/18 08:42 Temperature 97.6 F 04/02/18 08:42 Pulse Rate 135 04/02/18 09:22 Respiratory Rate 24 04/02/18 09:22 Blood Pressure 160/93 04/02/18 09:22 O2 Sat by Pulse Oximetry 96 04/02/18 09:22 Oxygen Delivery Oxygen Delivery Nasal Cannula Attestation Statement - Attestation Attestation: I examined this patient and my medical decision-making was reviewed with the Resident Physician. I agree with the documented findings, disposition and treatment plan as described except to the extent set forth below. 87 year old male presents to the eD with coplmaints of JESSENIA and is tachycardiac and hypoxic and does not waer oxygen therapy at home. His LLE appaers increasingly more swollen than the right and there are now concerns for PE vs. PN vs. pulmonary edema. We will start sepsis and caridopulmonary workup and admit ot meicine. Regarding his tachycardia we will treat according with anti- arrhtyhmics or fluid hydration based on fluid overload status
[2018-04-02 09:50] LABS: Basophils # 0.1 K/mcL (0.0-0.2); Basophils % 0.6 %; Eosinophils # 0.1 K/mcL (0.0-0.6); Eosinophils % 1.1 %; Hematocrit 40.1 % (37.5-50.1); Hemoglobin 12.7 g/dL (12.9-16.9); Immature Granulocytes % 0.5 % (0-4); Lymphocytes # 0.8 K/mcL (0.6-4.6); Lymphocytes % 8.6 %; Mean Corpuscular HGB Conc 31.7 g/dL (31.6-35.5); Mean Corpuscular Hemoglobin 30.5 pg (28.0-33.3); Mean Corpuscular Volume 96.2 fL (83.0-100.0); Monocytes # 0.5 K/mcL (0.0-1.3); Monocytes % 5.9 %; Neutrophils # 7.3 K/mcL (1.6-8.9); Platelet Count 179 K/mcL (140-400); Red Blood Count 4.17 M/mcL (4.19-5.50); Segmented Neutrophils % 83.3 %
[2018-04-02 10:00] LABS: Activated Partial Thrombo Time 46.2 Seconds (26.0-36.0)
[2018-04-02 10:07] LABS: Albumin/Globulin Ratio 0.8 (1.1-2.2); Bilirubin,Direct 0.2 mg/dL (0.0-0.2); Bilirubin,Indirect 0.6 mg/dL (0.0-1.2); Bilirubin,Total 0.8 mg/dL (0.3-1.0); Globulin 3.8 g/dL (2.4-3.5); Magnesium 1.1 mg/dL (1.6-2.6); Phosphorous 2.5 mg/dL (2.7-4.5); Total Protein 6.8 g/dL (6.4-8.9)
[2018-04-02 10:08] LABS: BUN/Creatinine Ratio 11 (6-26); Blood Urea Nitrogen 16 mg/dL (8-23); Carbon Dioxide 21 mEq/L (23-29); Chloride 111 mEq/L (98-107); Glucose 111 mg/dL (70-105); Osmolality,Calculated 300 (280-300); Potassium 3.6 mEq/L (3.5-5.1); Prothrombin Time 63.2 Seconds (9.4-12.1); Sodium 144 mEq/L (136-145); eGFR For Non-African Americans 45 (> 60)
[2018-04-02 10:08] LABS: Bilirubin,Urine Negative (Negative); Blood,Urine Small (Negative); Clarity,Urine Clear (Clear); Color,Urine Yellow (Yellow); Glucose,Urine (UA) Normal (Normal); Ketones,Urine Negative (Negative); Leukocyte Esterase,Urine Negative (Negative); Nitrite,Urine Negative (Negative); Protein,Urine 30 mg/dL (Neg-Trace); Specific Gravity,Urine 1.008 (1.010-1.025); Urobilinogen,Urine Normal (Normal)
[2018-04-02 10:09] LABS: INR 5.6; Troponin I < 0.03 ng/mL (< 0.04)
[2018-04-02 10:10] LABS: Bacteria,Urine None Seen per hpf (None-Few); Hyaline Casts,Urine None Seen per lpf (None-Few); Squamous Epithelial Cell,Urine Many per lpf (None-Few)
[2018-04-02] MEDS ORDERED: Piperacillin/Tazobactam 3.375 GM in 0.9 % Sodium Chloride Mini Bag 100 ML IVPB ONE (10:41)
[2018-04-02] MEDS ORDERED: Furosemide 40 MG/4 ML VIAL IVP ONE (10:42)
[2018-04-02] MEDS: Nitroglycerin 25 MG/250 ML INFUS..BTL IVC SCH (11:29)
[2018-04-02] MEDS ORDERED: *HR* Labetalol 20 MG/4 ML SYRINGE IVP ONE (11:55)
--- NOTE | 2018-04-02 12:43 | Internal Med History&Physical ---
Date of Encounter: 04/02/18 Time of Encounter: 12:43 Internal Medicine - H&P: HPI Chief complaint: shortness of breath Admitted From: Home Plans for Post Hospital Care: Home History of present illness: Mr. Levi is a 87 year old male with past medical history of previous strokes 2 in 2008 2013, GERD, hypothyroidism, COPD (not on home O2) peripheral vascular disease, AAA, carotid stenosis , chronic A. fib (on Coumadin 4mg ) , chronic kidney disease, HLD, and HTN who presents to the ED because of shortness of breath. Patient states his symptoms started around thanksgiving. He states he was coughing. He reports that he had been to his PCP 3 times. States he was given antibiotic and had chest x ray done. He states is cough never resolved. HE also reports having chest pain and SOB. He denies having fever or chills. He is a former smoker and quit 10 years ago. He does have COPD and takes Ventolin HFA but it did not seem tj help with his symptoms. Pt's is at his bedside. According to hospital records, pt was treated for URI on 02/20/2018and completed course of Amoxycillin 875 mg for 7 days. He denies any orthopnea, PND, does endorse some having difficulty walking 2 blocks for the last couple weeks. Patient denies any chest pain, diarrhea vomiting or nausea. In ED WBC 8.8, hgb 12.7, NA 144, K 3.6, BUn 16.48, Cr 1.48, INR 5.6, Chest x ray XR/XR chest 1V portable IMPRESSION: 1. Interval increase in size in the right-sided pleural effusion with likely unchanged small left pleural effusion. 2. Bibasilar atelectasis, right greater than left. 3. Minimal prominence of the pulmonary vasculature. CTA chest CT/CT angio chest IMPRESSION: 1. No acute pulmonary artery embolism. 2. Cardiomegaly with moderate right and small pleural effusions. 3. Emphysema with multifocal bilateral consolidation most evident to involve the right lower lobe and left lung base. Correlate clinical evidence of infection. Endobronchial debris may be mucoid in nature. Correlate bronchoscopy as warranted. Past Med Surg Social Fam HX - Past Medical History Medical history: atrial fibrillation, CVA, hyperlipidemia, hypertension, renal disease, other Additional medical history: irregular heart beat Psychiatric history: no psych history - Past Surgical History Surgical History: cholecystectomy Additional surgical history: abd aorta aneurysm. left femoral stent - Social History Smoking Status: Former smoker Smokeless Tobacco Status: No Alcohol use: none Drug use: none - Family History Father Family Member Ethnicity: Non- Living Status: Hx Family Cardiac Disorders: Yes (Stroke) Mother Family Member Ethnicity: Non- Living Status: Hx Family Respiratory Disorders: Yes (Pneumonia) Brother Family Member Ethnicity: Non- Living Status: Hx Family Cardiac Disorders: Yes ([place], CAD) Sister Family Member Ethnicity: Non- Living Status: Hx Family Cancer: Yes (Pancreatic) Internal Medicine - H&P: Meds Aspirin [Lo-Dose Aspirin EC] 81 mg PO DAILY 04/02/17 [History] Metoprolol [Lopressor] 200 mg PO DAILY 04/02/17 [History] Omeprazole [PriLOSEC] 40 mg PO DAILY 04/02/17 [History] Warfarin [Coumadin] 4 mg PO Q48H 04/02/17 [History] Amlodipine Besylate/Benazepril [Lotrel 5-20 mg Capsule] 1 each PO DAILY 04/03/17 [History] Lovastatin 40 mg PO HS 04/03/17 [History] Albuterol Sulfate [Ventolin Hfa] 2 puff IH Q6H PRN 04/02/18 [History] Levothyroxine [Synthroid] 25 mcg PO DAILY 04/02/18 [History] Multivitamin [One Daily Essential] 1 tab PO DAILY 04/02/18 [History] Allergy/AdvReac Type Severity Reaction Status Date / Time No Known Allergies Allergy Verified 09/27/15 05:31 All Systems PM: A 10-system review of systems was performed and is negative for pertinent findings except as documented above in the HPI. - Constitutional Vitals: Temp Pulse Resp BP Pulse Ox 97.6 F 137 22 157/90 98 04/02/18 08:42 04/02/18 11:46 04/02/18 11:46 04/02/18 11:46 04/02/18 11:46 Exam: Gen.: Vitals noted. No acute distress. Alert, awake and oriented * [address], [address], and time, well developed, well-nourished resting comfortably in bed. Mild to moderate resp distress. HEENT: oropharynx clear, Normocephalic, atraumatic, MMM. Neck: supple, no JVD, no lymphadenopathy, no carotid bruit. Cardiac: Irregular, Positive BLE edema, PMI non-displaced Pulmonary: bilaterally expiratory wheezes, decreased breath sounds bilaterally, no rales or rhonchi. Abdomen: soft, nontender, BS noted, no guarding, mildly distended. No organomegaly, no pulsatile masses, Back: no Bilateral flank tenderness, no suprapubic pain Skin: warm and dry, no visible lesions. Feels warm, clammy, no rashes, no lesions, no erythema MSK: ROM not assessed. no joint swelling noted, gait not assessed while in bed. Non tender calf or clubbing, no cyanosis/clubbing. Bilateral edema. Neuro: A&O, moves all extremities, no focal deficits, sensation intact Psych: Appropriate mood and behavior, normal speech. Internal Med - H&P Results - Labs CBC & Chem 7: 04/02/18 09:28 04/02/18 09:28 Labs: Short CBC 04/02/18 Range/Units 09:28 WBC 8.8 (4.3-11.1) K/mcL Hgb 12.7 L (12.9-16.9) g/dL Hct 40.1 (37.5-50.1) % Plt Count 179 (140-400) K/mcL Neutrophils # 7.3 (1.6-8.9) K/mcL BMP 04/02/18 09:28 Sodium 144 Potassium 3.6 Chloride 111 H Carbon Dioxide 21 L BUN 16 Creatinine 1.48 H Glucose 111 H Calcium 8.0 L Cardiac Enzymes 04/02/18 Range/Units 09:28 Troponin I < 0.03 (< 0.04) ng/mL Liver Function 04/02/18 Range/Units 09:28 Total Bilirubin 0.8 (0.3-1.0) mg/dL Direct Bilirubin 0.2 (0.0-0.2) mg/dL AST 19 (13-39) Units/L ALT 7 (7-52) Units/L Alkaline Phosphatase 68 (34-104) Units/L Albumin 3.0 L (3.5-5.7) g/dL Urine 04/02/18 Range/Units 09:56 Urine Color Yellow (Yellow) Urine Clarity Clear (Clear) Urine pH 6.0 (5.0-8.0) pH Units Ur Specific [place] 1.008 L (1.010-1.025) Urine Protein 30 H (Neg-Trace) mg/dL Urine Glucose (UA) Normal (Normal) mg/dL - Impressions ITS Impressions Chest CTA 04/02/18 08:59 IMPRESSION: 1. No acute pulmonary artery embolism. 2. Cardiomegaly with moderate right and small pleural effusions. 3. Emphysema with multifocal bilateral consolidation most evident to involve the right lower lobe and left lung base. Correlate clinical evidence of infection. Endobronchial debris may be mucoid in nature. Correlate bronchoscopy as warranted. D/ / 04/02/2018 10:41:25 Jaron Balderrama MD / laura Interpreting Provider: Jaron Balderrama MD Chest X-Ray 04/02/18 09:03 IMPRESSION: 1. Interval increase in size in the right-sided pleural effusion with likely unchanged small left pleural effusion. 2. Bibasilar atelectasis, right greater than left. 3. Minimal prominence of the pulmonary vasculature. D/ / Yong Castro MD / Yong Castro MD Interpreting Provider: Yong Castro MD - Assessment and plan (1) Acute and chronic respiratory failure Current Visit: Yes Status: Acute Assessment and plan: Multifactorial due to COPD, PNA, and volume overload state. CTA chest showing evidence of multifocal PNA. Started on Vancomycin and Zosyn in ED. Will place on Zithromax and Rocephin for onw. Will send sputum for culture. On BiPAP and slowly improving. ALso ghiven Lasix 40 mg IV times one in ED. Case discussed with Dr. Fink and he has agreed to see pt in consult. Qualifiers: Qualified Code(s): J96.20 - Acute and chronic respiratory failure, unspecified whether with hypoxia or hypercapnia (2) Pneumonia Current Visit: Yes Status: Acute Assessment and plan: Will place in IV Zithromax and Rocephin. Will send sputum for culture. checking strep and legionella. Qualifiers: Qualified Code(s): J18.9 - Pneumonia, unspecified organism (3) Volume overload Current Visit: Yes Status: Acute Qualifiers: Qualified Code(s): E87.70 - Fluid overload, unspecified (4) COPD exacerbation Current Visit: Yes Status: Acute Assessment and plan: Will place on Duo nebs Q 4 Hrs scheduled and PRN. Will place on steroid taper. Pulmonology consulted as well due to acute on chronic resp failure. (5) Hypoxia Current Visit: Yes Status: Acute Assessment and plan: Slowly improving on BiPaP (6) Volume overload state of heart Current Visit: Yes Status: Acute Assessment and plan: Will give lasix trial and reassess in am. Daily weights, Strict I and O's, and low sodium diet with fluid restriction. (7) Coagulopathy Current Visit: Yes Status: Acute Assessment and plan: INR 5.6. So far no evidence of blood loss of acute bleed. Hgb 12.7 and currently stable. Will monitor hgb and INR daily. Will hold Coumadin for now. (8) CKD (chronic kidney disease) stage 3, GFR 30-59 ml/min Current Visit: No Status: Chronic (9) HTN (hypertension) Current Visit: No Status: Chronic Assessment and plan: Metoprolol, Norvasc and Benzapril Qualifiers: Hypertension type: essential hypertension Qualified Code(s): I10 - Essential (primary) hypertension (10) HLD (hyperlipidemia) Current Visit: No Status: Chronic Assessment and plan: Lovastatin Qualifiers: Hyperlipidemia type: pure hypercholesterolemia Qualified Code(s): E78.00 - Pure hypercholesterolemia, unspecified; E78.0 - Pure hypercholesterolemia (11) Tachyarrhythmia Current Visit: Yes Status: Acute Assessment and plan: Documented hx of Afib but pt denies prior history of this. He is also on Coumadin. Will consult cardiology to see. - Time Spent With Patient Total time spent is greater than 50% in coordination of care (as documented) at patient's floor/unit and/or counseling patient: 25 - 35 minutes
--- NOTE | 2018-04-02 13:05 | Pulmonology Consult Note ---
<Audrey Oliveira - Last Filed: 04/02/18 16:34> Date of Encounter: 04/02/18 Assessment and Plan (1) Acute and chronic respiratory failure Current Visit: Yes Status: Acute Patient with shortness of breath and bilateral pneumonia on CTA. Patient ventilating and oxygenating well on oximask at this time. Continue to treat pneumonia with aspiration coverage with Zosyn and continue vancomycin until nasal MRSA swab results. Will order a swallow eval to rule out swallowing abnormalities leading to aspiration. Will provide patient with steroids, DuoNebs and antibiotics. Qualifiers: Respiratory failure complication: unspecified whether with hypoxia or hypercapnia Qualified Code(s): J96.20 - Acute and chronic respiratory failure, unspecified whether with hypoxia or hypercapnia (2) Pneumonia Current Visit: Yes Status: Acute Patient with concern for bilateral pneumonia on CTA of the chest. Possible mucous debris. Patient has supratherapeutic INR at this time therefore patient is not a candidate for bronchoscopy. We will continue to follow. Recommend antibiotics to cover aspiration pneumonia, steroids, bronchodilators, swallow eval. Qualifiers: Pneumonia type: due to unspecified organism Laterality: unspecified laterality Lung location: unspecified part of lung Qualified Code(s): J18.9 - Pneumonia, unspecified organism (3) Atrial fibrillation Current Visit: Yes Status: Acute Defer to hospitalist team Qualifiers: Atrial fibrillation type: unspecified Qualified Code(s): I48.91 - Un specified atrial fibrillation (4) Supratherapeutic INR Current Visit: Yes Status: Acute Hospitalist will hold Coumadin. We will wait for repeat lab values to determine if patient can have bronchoscopy. (5) DVT prophylaxis Current Visit: Yes Status: Acute Patient on Coumadin History of Present Illness History of present illness: 87-year-old male with significant past medical history of previous strokes 2 in 2008 2013, GERD, hypothyroidism, COPD (not on home O2) peripheral vascular disease, AAA, carotid stenosis , chronic A. fib (on Coumadin 4mg ) , chronic kidney disease, HLD, and HTN admitted to the hospital for shortness of breath due to pneumonia. Patient states his symptoms started around thanksgiving. Patient was seen by his primary care physician multiple times and given a course of amoxicillin without resolution of symptoms. In the emergency department patient was found to have elevated INR at 5.6 but no leukocytosis. CTA of the chest showed Emphysema with multifocal bilateral consolidation most evident to involve the right lower lobe and left lung base. There was concern for mucous debris as well. Patient was given vancomycin and Zosyn in the emergency department. On my examination the patient is pleasant, alert and hemodynamically stable. Patient states he is feeling significantly better and feels that he is breathing better at this time. His CODE STATUS is DNR CCA DNI. Patient states he would be open to getting bronchoscopy if that would make him feel better. Past Med Surg Social Fam HX - Past Medical History Attestation: Yes The following information was validated with the patient. Medications and Allergies Aspirin [Lo-Dose Aspirin EC] 81 mg PO DAILY 04/02/17 [History] Metoprolol [Lopressor] 200 mg PO DAILY 04/02/17 [History] Omeprazole [PriLOSEC] 40 mg PO DAILY 04/02/17 [History] Warfarin [Coumadin] 4 mg PO DAILY 04/02/17 [History] Amlodipine Besylate/Benazepril [Lotrel 5-20 mg Capsule] 1 each PO DAILY 04/03/17 [History] Lovastatin 40 mg PO HS 04/03/17 [History] Albuterol Sulfate [Ventolin Hfa] 2 puff IH Q6H PRN 04/02/18 [History] Levothyroxine [Synthroid] 25 mcg PO DAILY 04/02/18 [History] Multivitamin [One Daily Essential] 1 tab PO DAILY 04/02/18 [History] Allergy/AdvReac Type Severity Reaction Status Date / Time No Known Allergies Allergy Verified 09/27/15 05:31 All Systems: The remainder of the systems were reviewed and are negative - Constitutional Constitutional: no chills, no fever(s) - EENT Eyes: as per HPI Ears: as per HPI Nose, mouth and throat: as per HPI - Cardiovascular Cardiovascular: dyspnea, dyspnea on exertion, no chest pain - Respiratory Respiratory: cough, dyspnea, no hemoptysis - Gastrointestinal Gastrointestinal: no abdominal pain, no vomiting - Genitourinary Genitourinary: as per HPI - Integumentary Integumentary: as per HPI - Neurological Neurological: as per HPI - Psychiatric Psychiatric: as per HPI - Endocrine Endocrine: as per HPI - Hematologic/Lymphatic Hematologic/Lymphatic: as per HPI - Allergic/Immunologic Allergic/Immunologic: as per HPI Physical Examination Vital Signs: Vital Signs, Last 4 Hours Temp Pulse Resp BP Pulse Ox 04/02/18 15:03 108 04/02/18 15:00 98.0 F 109 24 140/110 96 04/02/18 12:15 115 26 148/101 100 General appearance: no acute distress, alert Eyes: nonicteric ENT: oropharynx moist Neck: supple Effort: mildly labored Inspection: normal Auscultation: bilateral: other (Coarse breath sounds bilaterally) Cardiovascular: other (Irregular rhythm, tachycardia) Gastrointestinal: normoactive bowel sounds, non-tender, non-distended Integumentary: normal Extremities: no cyanosis Musculoskeletal: no deformities normal mental status, non-focal exam mood appropriate, affect normal Results - Laboratory Findings CBC and BMP: 04/02/18 09:28 04/02/18 09:28 PT/INR, D-dimer PT 63.2 Seconds (9.4-12.1) H* 04/02/18 09:28 Abnormal lab findings: Abnormal lab results RBC 4.17 M/mcL (4.19-5.50) L 04/02/18 09:28 Hgb 12.7 g/dL (12.9-16.9) L 04/02/18 09:28 RDW 18.0 % (11.5-14.5) H 04/02/18 09:28 PT 63.2 Seconds (9.4-12.1) H* 04/02/18 09:28 INR 5.6 H* 04/02/18 09:28 APTT 46.2 Seconds (26.0-36.0) H 04/02/18 09:28 Chloride 111 mEq/L (98-107) H 04/02/18 09:28 Carbon Dioxide 21 mEq/L (23-29) L 04/02/18 09:28 Creatinine 1.48 mg/dL (0.70-1.30) H 04/02/18 09:28 Est GFR ( Amer) 54 (> 60) L 04/02/18 09:28 Est GFR (Non-Af Amer) 45 (> 60) L 04/02/18 09:28 Glucose 111 mg/dL (70-105) H 04/02/18 09:28 Calcium 8.0 mg/dL (8.6-10.3) L 04/02/18 09:28 Phosphorus 2.5 mg/dL (2.7-4.5) L 04/02/18 09:28 Magnesium 1.1 mg/dL (1.6-2.6) L 04/02/18 09:28 B-Natriuretic Peptide 459 pg/mL (Less than 100) H 04/02/18 09:28 Albumin 3.0 g/dL (3.5-5.7) L 04/02/18 09:28 Globulin 3.8 g/dL (2.4-3.5) H 04/02/18 09:28 Albumin/Globulin Ratio 0.8 (1.1-2.2) L 04/02/18 09:28 Ur Specific [place] 1.008 (1.010-1.025) L 04/02/18 09:56 Urine Protein 30 mg/dL (Neg-Trace) H 04/02/18 09:56 Urine Blood Small (Negative) H 04/02/18 09:56 Urine Microscopic RBC 5-15 per hpf (0-3) H 04/02/18 09:56 Urine Microscopic WBC 5-15 per hpf (0-3) H 04/02/18 09:56 Ur Squamous Epith Cells Many per lpf (None-Few) H 04/02/18 09:56 - Microbiology Findings Microbiology Findings: Microbiology, Last 48 Hours 04/02/18 09:22 Blood Culture - Preliminary Peripheral Venipuncture Culture is incubating and being continuously monitored for growth. Final report to follow. 04/02/18 09:28 Blood Culture - Preliminary Peripheral Venipuncture Culture is incubating and being continuously monitored for growth. Final report to follow. - Clinical Findings Intake & Output: Intake & Output 04/02/18 04/02/18 04/02/18 07:59 15:59 23:59 Intake Total 350 / 350 Output Total 1665 / 1665 Balance -1315 / -1315 Weight 79.379 kg Consult Discharge Plan - Plan Referrals: Travon Cardenas DO [Primary Care Provider] - <Kevin Fink - Last Filed: 04/02/18 17:50> Date of Encounter: 04/02/18 Time of Encounter: 13:04 History of Present Illness Consult date: 04/02/18 Requesting physician: Wei Galdamez Reason for consult: abnormal CXR/CT Chief complaint: Difficulty in Breathing Past Med Surg Social Fam HX - Past Medical History Medical history: atrial fibrillation, CVA, hyperlipidemia, hypertension, renal disease, other Additional medical history: irregular heart beat Psychiatric history: no psych history - Past Surgical History Surgical History: cholecystectomy Additional surgical history: abd aorta aneurysm. left femoral stent - Social History Smoking Status: Former smoker Smokeless Tobacco Status: No Alcohol use: none Drug use: none - Family History Father Family Member Ethnicity: Non- Living Status: Hx Family Cardiac Disorders: Yes (Stroke) Mother Family Member Ethnicity: Non- Living Status: Hx Family Respiratory Disorders: Yes (Pneumonia) Brother Family Member Ethnicity: Non- Living Status: Hx Family Cardiac Disorders: Yes ([place], CAD) Sister Family Member Ethnicity: Non- Living Status: Hx Family Cancer: Yes (Pancreatic) All Systems: The remainder of the systems were reviewed and are negative Physical Examination Vital Signs: Vital Signs, Last 4 Hours Pulse Resp BP Pulse Ox 04/02/18 11:46 137 22 157/90 98 04/02/18 11:19 109 29 160/93 100 04/02/18 10:43 33 100 04/02/18 09:22 135 24 160/93 96 Results - Laboratory Findings CBC and BMP: 04/02/18 09:28 04/02/18 09:28 PT/INR, D-dimer PT 63.2 Seconds (9.4-12.1) H* 04/02/18 09:28 Abnormal lab findings: Abnormal lab results RBC 4.17 M/mcL (4.19-5.50) L 04/02/18 09:28 Hgb 12.7 g/dL (12.9-16.9) L 04/02/18 09:28 RDW 18.0 % (11.5-14.5) H 04/02/18 09:28 PT 63.2 Seconds (9.4-12.1) H* 04/02/18 09:28 INR 5.6 H* 04/02/18 09:28 APTT 46.2 Seconds (26.0-36.0) H 04/02/18 09:28 Chloride 111 mEq/L (98-107) H 04/02/18 09:28 Carbon Dioxide 21 mEq/L (23-29) L 04/02/18 09:28 Creatinine 1.48 mg/dL (0.70-1.30) H 04/02/18 09:28 Est GFR ( Amer) 54 (> 60) L 04/02/18 09:28 Est GFR (Non-Af Amer) 45 (> 60) L 04/02/18 09:28 Glucose 111 mg/dL (70-105) H 04/02/18 09:28 Calcium 8.0 mg/dL (8.6-10.3) L 04/02/18 09:28 Phosphorus 2.5 mg/dL (2.7-4.5) L 04/02/18 09:28 Magnesium 1.1 mg/dL (1.6-2.6) L 04/02/18 09:28 B-Natriuretic Peptide 459 pg/mL (Less than 100) H 04/02/18 09:28 Albumin 3.0 g/dL (3.5-5.7) L 04/02/18 09:28 Globulin 3.8 g/dL (2.4-3.5) H 04/02/18 09:28 Albumin/Globulin Ratio 0.8 (1.1-2.2) L 04/02/18 09:28 Ur Specific [place] 1.008 (1.010-1.025) L 04/02/18 09:56 Urine Protein 30 mg/dL (Neg-Trace) H 04/02/18 09:56 Urine Blood Small (Negative) H 04/02/18 09:56 Urine Microscopic RBC 5-15 per hpf (0-3) H 04/02/18 09:56 Urine Microscopic WBC 5-15 per hpf (0-3) H 04/02/18 09:56 Ur Squamous Epith Cells Many per lpf (None-Few) H 04/02/18 09:56 - Microbiology Findings Microbiology Findings: Microbiology, Last 48 Hours 04/02/18 09:22 Blood Culture - Preliminary Peripheral Venipuncture Culture is incubating and being continuously monitored for growth. Final report to follow. 04/02/18 09:28 Blood Culture - Preliminary Peripheral Venipuncture Culture is incubating and being continuously monitored for growth. Final report to follow. - Clinical Findings Intake & Output: Intake & Output 04/01/18 04/02/18 04/02/18 23:59 07:59 15:59 Weight 79.379 kg - Attending Attestation I examined this patient and my medical decision-making was reviewed with the Resident Physician. I agree with the documented findings, disposition and treatment plan as described except to the extent set forth below. We independently had [id number] contact with the patient Patient seen and examined at bedside Labs, radiology, chart personally reviewed. Impression/Recs: Very pleasant 87-year-old gentleman with past medical history of heart failure and COPD presenting with acute respiratory failure secondary to COPD exacerbation from pneumonia there is evidence of the endobronchial debris on the CT of the chest I had an extensive conversation with the patient and he wants to pursue and conservative approach I did offer him possibility of bronchoscopy after correcting INR and he says and less attentively necessary did not want to proceed with this and he is clear that he is a DNA R/DNI which is understandable -Upfront I recommend treatment with IV steroids I agree with the antibiotics including aspiration coverage and he will need formal speech and swallow eval -Been diuresis as tolerated by kidney function Consider holding warfarin for A. fib and the acute setting for possibility of procedure down the road here no indication for reversal at this time -Continue supplemental oxygen keep saturation greater than 88% -BiPAP as needed for work of breathing -Continue bronchodilators and bronchopulmonary toileting Thank you for this consultation pulmonary will continue to follow
[2018-04-02] MEDS ORDERED: Naloxone 0.4 MG/ML INJ IVP PRN (13:30)
[2018-04-02] MEDS ORDERED: Acetaminophen 325 MG TABLET PO PRN (13:30)
[2018-04-02] MEDS: Azithromycin 500 MG in D5% in Water 250 ML IVPB SCH (15:29)
[2018-04-02] MEDS: Ipratropium/Albuterol Neb 3 ML IH SCH ×2 (17:20→19:42)
[2018-04-02] MEDS: Furosemide 40 MG/4 ML VIAL IVP SCH (17:40)
[2018-04-02] MEDS: MethylPREDNISolone 40 MG/ML VIAL IVP SCH (17:40)
[2018-04-02] MEDS: Metoprolol 100 MG TABLET PO SCH (19:56)
[2018-04-02] MEDS: Piperacillin/Tazobactam 3.375 GM in 0.9 % Sodium Chloride Mini Bag 100 ML IVPB SCH (23:22)
[2018-04-03] MEDS: Ipratropium/Albuterol Neb 3 ML IH SCH ×6 (00:01→20:05)
[2018-04-03 04:36] LABS: Hematocrit 36.6 % (37.5-50.1); Hemoglobin 11.9 g/dL (12.9-16.9); Immature Granulocytes % 0.6 % (0-4); Lymphocytes # 0.5 K/mcL (0.6-4.6); Lymphocytes % 7.6 %; Mean Corpuscular HGB Conc 32.5 g/dL (31.6-35.5); Mean Corpuscular Hemoglobin 30.5 pg (28.0-33.3); Mean Corpuscular Volume 93.8 fL (83.0-100.0); Mean Platelet Volume 10.4 fL (9.4-12.4); Monocytes # 0.2 K/mcL (0.0-1.3); Monocytes % 2.8 %; Neutrophils # 6.4 K/mcL (1.6-8.9); Platelet Count 177 K/mcL (140-400); Red Cell Distribution Width 17.8 % (11.5-14.5)
[2018-04-03 04:44] LABS: INR 6.7; Prothrombin Time 75.8 Seconds (9.4-12.1)
[2018-04-03 04:53] LABS: Calcium 7.8 mg/dL (8.6-10.3); Potassium 3.7 mEq/L (3.5-5.1)
[2018-04-03] MEDS: MethylPREDNISolone 40 MG/ML VIAL IVP SCH ×2 (05:24→17:05)
[2018-04-03] MEDS ORDERED: Levothyroxine 25 MCG TABLET PO SCH (06:30)
--- NOTE | 2018-04-03 07:45 | Pulmonology Progress Note ---
<Audrey Oliveira - Last Filed: 04/03/18 07:47> Date of Encounter: 04/03/18 Time of Encounter: 07:39 Assessment and Plan (1) Acute and chronic respiratory failure Current Visit: Yes Status: Acute Patient with shortness of breath and bilateral pneumonia on CTA. Patient ventilating and oxygenating well on room air at this time. Continue to treat pneumonia with aspiration coverage with Zosyn and continue vancomycin until nasal MRSA swab results. Will order a swallow eval to rule out swallowing abnormalities leading to aspiration. Will provide patient with steroids, DuoNebs and antibiotics. Qualifiers: Respiratory failure complication: unspecified whether with hypoxia or hypercapnia Qualified Code(s): J96.20 - Acute and chronic respiratory failure, unspecified whether with hypoxia or hypercapnia (2) Pneumonia Current Visit: Yes Status: Acute Patient with concern for bilateral pneumonia on CTA of the chest. Possible mucous debris. Patient has supratherapeutic INR at this time therefore patient is not a candidate for bronchoscopy. We will continue to follow. Recommend antibiotics to cover aspiration pneumonia, steroids, bronchodilators, swallow eval. Qualifiers: Pneumonia type: due to unspecified organism Laterality: unspecified late rality Lung location: unspecified part of lung Qualified Code(s): J18.9 - Pneumonia, unspecified organism (3) Atrial fibrillation Current Visit: Yes Status: Acute Defer to hospitalist team Qualifiers: Atrial fibrillation type: unspecified Qualified Code(s): I48.91 - Unspecified atrial fibrillation (4) Supratherapeutic INR Current Visit: Yes Status: Acute Patient INR 6.7. Defer to hospitalist team for further intervention and treatment. (5) DVT prophylaxis Current Visit: Yes Status: Acute Subcutaneous heparin Subjective Principal diagnosis: SOB Interval history: Patient states he is doing significantly better. No issues overnight. INR continues to be supratherapeutic. Continue antibiotics, bronchodilators, steroids and transfer patient to telemetry floor. Will defer bronchoscopy due to supratherapeutic INR at this time. Objective PUL Vital signs: Last Vital Signs Temp 98.7 F 04/03/18 04:00 Pulse 89 04/03/18 06:00 Resp 22 04/03/18 04:00 BP 128/76 04/03/18 04:00 Pulse Ox 96 04/03/18 04:00 General appearance: no acute distress, alert Eyes: nonicteric ENT: oropharynx moist Neck: supple Effort: normal Auscultation: bilateral: other (Coarse breath sounds bilaterally) Cardiovascular: irregular rhythm, other (Tachycardia) Gastrointestinal: normoactive bowel sounds, non-distended Integumentary: normal Extremities: no cyanosis Musculoskeletal: no deformities Gait: normal posture normal mental status, non-focal exam mood appropriate, affect normal Results - Laboratory Findings CBC and BMP: 04/03/18 04:18 04/03/18 04:18 PT/INR, D-dimer PT 75.8 Seconds (9.4-12.1) H* 04/03/18 04:18 Abnormal lab findings: Abnormal lab results RBC 3.90 M/mcL (4.19-5.50) L 04/03/18 04:18 Hgb 11.9 g/dL (12.9-16.9) L 04/03/18 04:18 Hct 36.6 % (37.5-50.1) L 04/03/18 04:18 RDW 17.8 % (11.5-14.5) H 04/03/18 04:18 Lymphocytes # 0.5 K/mcL (0.6-4.6) L 04/03/18 04:18 PT 75.8 Seconds (9.4-12.1) H* 04/03/18 04:18 INR 6.7 H* 04/03/18 04:18 APTT 46.2 Seconds (26.0-36.0) H 04/02/18 09:28 Creatinine 1.70 mg/dL (0.70-1.30) H 04/03/18 04:18 Est GFR ( Amer) 46 (> 60) L 04/03/18 04:18 Est GFR (Non-Af Amer) 38 (> 60) L 04/03/18 04:18 Glucose 146 mg/dL (70-105) H 04/03/18 04:18 Calculated Osmolality 301 (280-300) H 04/03/18 04:18 Calcium 7.8 mg/dL (8.6-10.3) L 04/03/18 04:18 Phosphorus 2.5 mg/dL (2.7-4.5) L 04/02/18 09:28 Magnesium 1.1 mg/dL (1.6-2.6) L 04/02/18 09:28 Troponin I 0.34 ng/mL (< 0.04) H* 04/03/18 04:18 B-Natriuretic Peptide 454 pg/mL (Less than 100) H 04/03/18 04:18 Albumin 3.0 g/dL (3.5-5.7) L 04/02/18 09:28 Globulin 3.8 g/dL (2.4-3.5) H 04/02/18 09:28 Albumin/Globulin Ratio 0.8 (1.1-2.2) L 04/02/18 09:28 Ur Specific [place] 1.008 (1.010-1.025) L 04/02/18 09:56 Urine Protein 30 mg/dL (Neg-Trace) H 04/02/18 09:56 Urine Blood Small (Negative) H 04/02/18 09:56 Urine Microscopic RBC 5-15 per hpf (0-3) H 04/02/18 09:56 Urine Microscopic WBC 5-15 per hpf (0-3) H 04/02/18 09:56 Ur Squamous Epith Cells Many per lpf (None-Few) H 04/02/18 09:56 - Microbiology Findings Microbiology Findings: Microbiology, Last 48 Hours 04/03/18 03:21 Streptococcus pneumoniae Antigen (M - Final Urine,Clean Catch 04/02/18 09:22 Blood Culture - Preliminary Peripheral Venipuncture Culture is incubating and being continuously monitored for growth. Final report to follow. 04/02/18 09:28 Blood Culture - Preliminary Peripheral Venipuncture Culture is incubating and being continuously monitored for growth. Final report to follow. - Clinical Findings Intake & Output: Intake & Output 04/02/18 04/02/18 04/03/18 15:59 23:59 07:59 Intake Total 350 / 350 350 / 350 540 / 540 Output Total 1665 / 1665 1150 / 1150 500 / 500 Balance -1315 / -1315 -800 / -800 40 / 40 Weight 79.379 kg 75.2 kg Consult Discharge Plan - Plan Referrals: Travon Cardenas DO [Primary Care Provider] - <Ronna Rios M - Last Filed: 04/03/18 08:25> Date of Encounter: 04/03/18 Objective PUL Vital signs: Last Vital Signs Temp 98.7 F 04/03/18 04:00 Pulse 89 04/03/18 06:00 Resp 16 04/03/18 07:33 BP 128/76 04/03/18 04:00 Pulse Ox 93 04/03/18 07:33 Results - Laboratory Findings CBC and BMP: 04/03/18 04:18 04/03/18 04:18 PT/INR, D-dimer PT 75.8 Seconds (9.4-12.1) H* 04/03/18 04:18 Abnormal lab findings: Abnormal lab results RBC 3.90 M/mcL (4.19-5.50) L 04/03/18 04:18 Hgb 11.9 g/dL (12.9-16.9) L 04/03/18 04:18 Hct 36.6 % (37.5-50.1) L 04/03/18 04:18 RDW 17.8 % (11.5-14.5) H 04/03/18 04:18 Lymphocytes # 0.5 K/mcL (0.6-4.6) L 04/03/18 04:18 PT 75.8 Seconds (9.4-12.1) H* 04/03/18 04:18 INR 6.7 H* 04/03/18 04:18 APTT 46.2 Seconds (26.0-36.0) H 04/02/18 09:28 Creatinine 1.70 mg/dL (0.70-1.30) H 04/03/18 04:18 Est GFR ( Amer) 46 (> 60) L 04/03/18 04:18 Est GFR (Non-Af Amer) 38 (> 60) L 04/03/18 04:18 Glucose 146 mg/dL (70-105) H 04/03/18 04:18 Calculated Osmolality 301 (280-300) H 04/03/18 04:18 Calcium 7.8 mg/dL (8.6-10.3) L 04/03/18 04:18 Phosphorus 2.5 mg/dL (2.7-4.5) L 04/02/18 09:28 Magnesium 1.1 mg/dL (1.6-2.6) L 04/02/18 09:28 Troponin I 0.34 ng/mL (< 0.04) H* 04/03/18 04:18 B-Natriuretic Peptide 454 pg/mL (Less than 100) H 04/03/18 04:18 Albumin 3.0 g/dL (3.5-5.7) L 04/02/18 09:28 Globulin 3.8 g/dL (2.4-3.5) H 04/02/18 09:28 Albumin/Globulin Ratio 0.8 (1.1-2.2) L 04/02/18 09:28 Ur Specific [place] 1.008 (1.010-1.025) L 04/02/18 09:56 Urine Protein 30 mg/dL (Neg-Trace) H 04/02/18 09:56 Urine Blood Small (Negative) H 04/02/18 09:56 Urine Microscopic RBC 5-15 per hpf (0-3) H 04/02/18 09:56 Urine Microscopic WBC 5-15 per hpf (0-3) H 04/02/18 09:56 Ur Squamous Epith Cells Many per lpf (None-Few) H 04/02/18 09:56 - Microbiology Findings Microbiology Findings: Microbiology, Last 48 Hours 04/03/18 03:21 Streptococcus pneumoniae Antigen (M - Final Urine,Clean Catch 04/02/18 09:22 Blood Culture - Preliminary Peripheral Venipuncture Culture is incubating and being continuously monitored for growth. Final report to follow. 04/02/18 09:28 Blood Culture - Preliminary Peripheral Venipuncture Culture is incubating and being continuously monitored for growth. Final report to follow. - Clinical Findings Intake & Output: Intake & Output 04/02/18 04/03/18 04/03/18 23:59 07:59 15:59 Intake Total 350 / 350 540 / 540 Output Total 1150 / 1150 500 / 500 Balance -800 / -800 40 / 40 Weight 75.2 kg - Attending Attestation I examined this patient and my medical decision-making was reviewed with the Resident Physician. I agree with the documented findings, disposition and treatment plan as described except to the extent set forth below. Patient seen and examined. Labs, radiology, chart personally reviewed. 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 Will keep patient nothing by mouth postmidnight and if INR within acceptable range we may need to do bronchoscopy. Continue current antibiotics at this time. Patient will need to walk test to check his need for oxygen before discharge. Cardiovascular: stable GI: Nutrition per dietary and GI prophylaxis per routine Heme: DVT prophylaxis per routine and holding his anticoagulation because of valvulopathy. ID: Continue antibiotics and plan to de-escalation Renal; urine out put and renal funtion reviewed Endorcine: blood glucose is monitored Lines: all lines checked and no evidence of infections Skin: skin care to prevent pressure ulcers per nursing routine care Patient can be transferred to any telemetry
[2018-04-03] MEDS ORDERED: cefTRIAXone 1,000 MG in Water for inj. (sterile) 20 ML 10 ML IVP SCH (09:00)
[2018-04-03] MEDS ORDERED: amLODIPine 5 MG TABLET PO SCH (09:00)
[2018-04-03] MEDS ORDERED: Lisinopril 20 MG TABLET PO SCH (09:00)
[2018-04-03] MEDS: Metoprolol 100 MG TABLET PO SCH (09:04)
[2018-04-03] MEDS: Furosemide 40 MG/4 ML VIAL IVP SCH ×2 (09:05→17:05)
[2018-04-03] MEDS: Piperacillin/Tazobactam 3.375 GM in 0.9 % Sodium Chloride Mini Bag 100 ML IVPB SCH ×3 (12:19→19:25)
--- NOTE | 2018-04-03 14:33 | Cardiology Consult Note ---
<Robert Garvin - Last Filed: 04/03/18 14:33> Date of Encounter: 04/03/18 Time of Encounter: 14:30 Assessment and Plan (1) Acute and chronic respiratory failure Current Visit: Yes Status: Acute Per Cardiology: Admitted for acute on chronic respiratory failure. Being managed for pneumonia by pulmonology. Reportedly has declined bronchoscopy and pending discharge home tomorrow. Qualifiers: Respiratory failure complication: unspecified whether with hypoxia or hypercapnia Qualified Code(s): J96.20 - Acute and chronic respiratory failure, unspecified whether with hypoxia or hypercapnia (2) Atrial fibrillation Current Visit: Yes Status: Chronic Per Cardiology: History of atrial fibrillation. Current heart rates in the 90s to 100s. We will discontinue Norvasc and titrate beta gerhard for rate control optimization. Regarding long-term anticoagulation, has been on Coumadin for many years now. Presented super therapeutic, Coumadin currently on hold. H&H stable. Recommend target INR 2.0-3.0 if patient desires to continue. Recommend anticoagulation for primary prevention of stroke. Qualifiers: Atrial fibrillation type: unspecified Qualified Code(s): I48.91 - Unspecified atrial fibrillation (3) Coagulopathy Current Visit: Yes Status: Acute Per Cardiology: Current INR 6.7, Coumadin currently on hold. (4) Elevated troponin Current Visit: Yes Status: Acute Per Cardiology: Troponins flat and adynamic; initial troponin negative then 0.31, 0.41, and 0.34. Patient denies any chest pain. Troponins insetting of pneumonia, acute on chronic respiratory failure, A. fib with RVR. At lengthy discussion with patient and family, patient desires to remain DNR/CCA/DNI does not desire to proceed with any further ischemic evaluation. Of note EF preserved on echo with no segmental wall motion abnormalities. On aspirin, statin, JENNIFER inhibitor, beta gerhard. Cardiology signing off. Will discuss with Dr. Lozoya. Discussion w patient/family: The assessment and plan as outlined above was discussed with the patient and/or family members who expressed understanding and agreement. All questions were answered. Thank you for involving us in the care of your patient. Please call with any questions. History of Present Illness Consult date: 04/03/18 Consult reason: Trop Chief complaint: SOB History of present illness: Previous medical records reviewed: "Mr. Levi is a 87 year old male with past medical history of previous strokes 2 in 2008 2013, GERD, hypothyroidism, COPD (not on home O2) peripheral vascular disease, AAA, carotid stenosis , chronic A. fib (on Coumadin 4mg ) , chronic kidney disease, HLD, and HTN who presents to the ED because of shortness of breath". Has past history of nicotine abuse. Of note the patient is DNR/CCA/DNI. Cardiology consult for elevated troponins. Patient seen with family at bedside. He confirms the above information reports increased short of breath over the past few weeks. He denies any chest pain symptoms. Confirms past history of atrial fibrillation and taking Coumadin. Denies any recent concerns of active bleeding or blood loss. Patient denies any past history of CAD is never undergone ischemic evaluation. Currently chest pain-free. Patient reports desire to go home, however willing to stay today with discharge tomorrow. Per discussion with nursing team, patient has declined bronchoscopy. Patient confirms desire to be DNR/CCA/DNI. Patient actually interested in discontinuation of Coumadin as well. Past Med Surg Social Fam HX - Past Medical History Attestation: Yes The following information was validated with the patient. Source: patient, old records reviewed, obtained from family Medical history: atrial fibrillation, CVA, hyperlipidemia, hypertension, renal disease, other Additional medical history: irregular heart beat Psychiatric history: no psych history - Past Surgical History Surgical History: cholecystectomy Additional surgical history: abd aorta aneurysm. left femoral stent - Social History Smoking Status: Former smoker Smokeless Tobacco Status: No Alcohol use: none Drug use: none - Family History Father Family Member Ethnicity: Non- Living Status: Hx Family Cardiac Disorders: Yes (Stroke) Mother Family Member Ethnicity: Non- Living Status: Hx Family Respiratory Disorders: Yes (Pneumonia) Brother Family Member Ethnicity: Non- Living Status: Hx Family Cardiac Disorders: Yes (NC, CAD) Sister Family Member Ethnicity: Non- Living Status: Hx Family Cancer: Yes (Pancreatic) Medications and Allergies Aspirin [Lo-Dose Aspirin EC] 81 mg PO DAILY 04/02/17 [History] Metoprolol [Lopressor] 200 mg PO DAILY 04/02/17 [History] Omeprazole [PriLOSEC] 40 mg PO DAILY 04/02/17 [History] Warfarin [Coumadin] 4 mg PO DAILY 04/02/17 [History] Amlodipine Besylate/Benazepril [Lotrel 5-20 mg Capsule] 1 each PO DAILY 04/03/17 [History] Lovastatin 40 mg PO HS 04/03/17 [History] Albuterol Sulfate [Ventolin Hfa] 2 puff IH Q6H PRN 04/02/18 [History] Levothyroxine [Synthroid] 25 mcg PO DAILY 04/02/18 [History] Multivitamin [One Daily Essential] 1 tab PO DAILY 04/02/18 [History] Allergy/AdvReac Type Severity Reaction Status Date / Time No Known Allergies Allergy Verified 09/27/15 05:31 All Systems Review: The remainder of the systems were reviewed and are negative - Cardiovascular Cardiovascular: as per HPI, dyspnea at rest, dyspnea on exertion Physical Examination Vital Signs, Last 4 Hours Temp Pulse Resp BP Pulse Ox 04/03/18 12:08 88 24 134/81 92 04/03/18 12:00 97.8 F 88 04/03/18 11:17 16 93 General: Conversant, No Apparent Distress HEENT: Atraumatic, Normocephaly, Mucus Membranes Moist Neck: No JVD, Normal carotid pulses Cardiac: No Murmur, Other (Irregularly irregular) Lungs: No Wheeze, Rales, Rhonchi, Other (Respirations mildly labored at rest, diminished breath sounds throughout) Neuro: Alert and responsive, No focal deficits noted Abdomen: Soft, Non-Tender Skin: No rashes noted on visualized skin Musculoskeletal: No Chest Wall Tenderness Extremities: No Clubbing, No Cyanosis, No Edema, Normal Pulses Results 04/03/18 04:18 04/03/18 04:18 Lab Results Laboratory Tests 04/02/18 04/02/18 04/02/18 09:28 09:28 09:28 WBC Hgb Hct Plt Count INR 5.6 H* Creatinine Est GFR (Non-Af Amer) Magnesium 1.1 L Troponin I < 0.03 B-Natriuretic Peptide 04/02/18 04/02/18 04/03/18 15:19 21:28 04:18 WBC 7.1 Hgb 11.9 L Hct 36.6 L Plt Count 177 INR Creatinine Est GFR (Non-Af Amer) Magnesium Troponin I 0.31 H* 0.41 H* B-Natriuretic Peptide 04/03/18 04/03/18 04/03/18 04:18 04:18 04:18 WBC Hgb Hct Plt Count INR 6.7 H* Creatinine 1.70 H Est GFR (Non-Af Amer) 38 L Magnesium Troponin I B-Natriuretic Peptide 454 H 04/03/18 04:18 WBC Hgb Hct Plt Count INR Creatinine Est GFR (Non-Af Amer) Magnesium Troponin I 0.34 H* B-Natriuretic Peptide ITS Impressions Chest CTA 04/02/18 08:59 IMPRESSION: 1. No acute pulmonary artery embolism. 2. Cardiomegaly with moderate right and small left pleural effusions. 3. Emphysema with multifocal bilateral consolidation most evident to involve the right lower lobe and left lung base. Correlate clinical evidence of infection. Endobronchial debris may be mucoid in nature. Correlate bronchoscopy as warranted. D/ / 04/02/2018 10:41:25 Jaron Balderrama MD / daniel Interpreting Provider: Jaron Balderrama MD Chest X-Ray 04/02/18 09:03 IMPRESSION: 1. Interval increase in size in the right-sided pleural effusion with likely unchanged small left pleural effusion. 2. Bibasilar atelectasis, right greater than left. 3. Minimal prominence of the pulmonary vasculature. D/ / Yong Castro MD / Yong Castro MD Interpreting Provider: Yong Castro MD Echocardiogram 04/02/18 13:38 Impressions: LVEF 55%. Indeterminate diastolic function. Normal right ventricular structure and function. Severe bi-atrial enlargement. Moderate mitral regurgitation. Mild aortic regurgitation. No aortic stenosis by Doppler. Grossly, there is moderate calcification and reduced mobility of the aortic leaflets. Moderate tricuspid regurgitation. Mild pulmonic regurgitation. Moderate pulmonary hypertension. Correlate clinically. Left Ventricular Wall Motion: Rest Echo Findings All wall segments showed normal motion. Findings: Study Quality * Technically adequate exam. ECG Findings * Atrial fibrillation. Left Ventricle * Indeterminate diastolic function. * LVEF 55%. * Normal LV chamber size and wall thickness. Right Ventricle * Normal right ventricular structure and function. Left Atrium * Severely dilated left atrium. Right Atrium * Severely dilated right atrium. Mitral Valve * No mitral stenosis. * Mildly thickened mitral valve leaflets. * Moderate mitral regurgitation. Aortic Valve * No aortic regurgitation. * Aortic valve not well visualized. * Mild aortic regurgitation. * No aortic stenosis by Doppler. Tricuspid Valve * Tricuspid valve not well visualized. * Moderate tricuspid regurgitation. * Estimated RA pressure is 8 mmHg. * Estimated RVSP is 50 mmHg. * Moderate pulmonary hypertension. Pulmonic Valve * Pulmonic valve is not well visualized. * Mild pulmonic regurgitation. * No pulmonic stenosis. Pulmonary Artery * Pulmonary artery not well visualized. Aorta * Normally sized aortic root. Pericardium * There is no pericardial effusion present. Interatrial Septum * No evidence of PFO by color Doppler. IVC * The IVC is not dilated. * < 50% respiratory change. Active Medications Acetaminophen (Tylenol) 650 mg PO Q6HR PRN PRN Reason: Mild Pain/Fever Stop: 10/02/18 13:31 Albuterol/Ipratropium (Duoneb) 3 ml IH [id number] [facility] Stop: 10/02/18 16:31 Last Admin: 04/03/18 11:17 Dose: 3 ml Amlodipine Besylate (Norvasc) 5 mg PO DAILY [facility]; Protocol Stop: 10/03/18 09:01 Last Admin: 04/03/18 09:04 Dose: 5 mg Atorvastatin Calcium (Lipitor) 10 mg PO HS [facility] Stop: 10/02/18 21:01 Last Admin: 04/02/18 19:56 Dose: 10 mg Furosemide (Lasix) 40 mg IVP BIDDIURETIC [facility] Stop: 10/02/18 17:01 Last Admin: 04/03/18 09:05 Dose: 40 mg Nitroglycerin (Nitroglycerin Premix 25 Mg/250 Ml) 25 mg in 250 mls @ 12 mls/hr IVC .[id number] [facility]; Protocol Stop: 10/02/18 10:46 Last Titration: 04/03/18 04:00 Dose: 0 mcg/min, 0 mls/hr Azithromycin 500 mg/ Dextrose 250 mls @ 252 mls/hr IVPB Q24H [facility] Stop: 10/02/18 14:01 Last Infusion: 04/02/18 16:29 Dose: Infused Piperacillin Sod/Tazobactam (Sod 3.375 gm/ Sodium Chloride) 100 mls @ 25 mls/hr IVPB Q8H [facility] Stop: 10/02/18 23:01 Levothyroxine Sodium (Synthroid) 25 mcg PO DAILY@0630 [facility] Stop: 10/03/18 06:31 Last Admin: 04/03/18 05:25 Dose: 25 mcg Lisinopril (Zestril) 20 mg PO DAILY [facility]; Protocol Stop: 10/03/18 09:01 Last Admin: 04/03/18 09:04 Dose: 20 mg Methylprednisolone (Solu-Medrol) 40 mg IVP Q12HR [facility] Stop: 10/02/18 18:01 Last Admin: 04/03/18 05:24 Dose: 40 mg Metoprolol Tartrate (Lopressor) 100 mg PO BID [facility] Stop: 10/02/18 21:01 Last Admin: 04/03/18 09:04 Dose: 100 mg Naloxone HCl (Narcan) 0.4 mg IVP Q2MIN PRN PRN Reason: SEE COMMENTS Stop: 10/02/18 13:31 Promethazine HCl (Phenergan) 12.5 mg PO Q6HR PRN PRN Reason: Nausea And Vomiting Stop: 10/02/18 13:31 - Imaging and Cardiology Chest Xray: report reviewed Echo: report reviewed - EKG Interpretation EKG results cardiology: other (A. fib in the 90s to 100) Consult Discharge Plan - Plan Referrals: Travon Cardenas DO [Primary Care Provider] - <Alexandro Lozoya - Last Filed: 04/03/18 15:45> Date of Encounter: 04/03/18 - Attending Attestation I have personally performed a face to face evaluation on this patient. I have reviewed and agree with the documented findings and care plan as documented by the LENS EDGER. History and Exam by me shows: 87-year-old male with history of permanent A. fib admitted for respiratory failure secondary to pneumonia. He appears to be rate controlled at this time. INR is supratherapeutic and Coumadin is on hold. Thanks, Alexandro Lozoya MD FAC Assessment and Plan Discussion w patient/family: The assessment and plan as outlined above was discussed with the patient and/or family members who expressed understanding and agreement. All questions were answered. Thank you for involving us in the care of your patient. Please call with any questions. History of Present Illness History of present illness: Mr. Levi is a 87 year old male All Systems Review: The remainder of the systems were reviewed and are negative Physical Examination Vital Signs, Last 4 Hours Temp Pulse Resp BP Pulse Ox 04/03/18 15:12 16 97 04/03/18 14:00 80 24 99/68 93 04/03/18 12:08 88 24 134/81 92 04/03/18 12:00 97.8 F 88 Results 04/03/18 04:18 04/03/18 04:18 Lab Results 04/02/18 04/02/18 04/03/18 15:19 21:28 04:18 WBC 7.1 Hgb 11.9 L Hct 36.6 L Plt Count 177 INR Sodium Potassium Chloride Carbon Dioxide BUN Creatinine Glucose Calcium Troponin I 0.31 H* 0.41 H* B-Natriuretic Peptide 04/03/18 04/03/18 04/03/18 04:18 04:18 04:18 WBC Hgb Hct Plt Count INR 6.7 H* Sodium 143 Potassium 3.7 Chloride 107 Carbon Dioxide 25 BUN 18 Creatinine 1.70 H Glucose 146 H Calcium 7.8 L Troponin I B-Natriuretic Peptide 454 H 04/03/18 04:18 WBC Hgb Hct Plt Count INR Sodium Potassium Chloride Carbon Dioxide BUN Creatinine Glucose Calcium Troponin I 0.34 H* B-Natriuretic Peptide
[2018-04-03] MEDS: Azithromycin 500 MG in D5% in Water 250 ML IVPB SCH (17:05)
--- NOTE | 2018-04-03 17:55 | Electrocardiograph Report ---
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
[2018-04-03] MEDS ORDERED: Metoprolol 100 MG TABLET PO SCH (21:00)
--- NOTE | 2018-04-03 21:07 | Electrocardiograph Report ---
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
[2018-04-03] MEDS ORDERED: Naloxone 0.4 MG/ML INJ IVP PRN (21:35)
[2018-04-03] MEDS ORDERED: Acetaminophen 325 MG TABLET PO PRN (21:35)
[2018-04-04] MEDS: Ipratropium/Albuterol Neb 3 ML IH SCH ×7 (00:14→23:52)
[2018-04-04] MEDS: Piperacillin/Tazobactam 3.375 GM in 0.9 % Sodium Chloride Mini Bag 100 ML IVPB SCH ×3 (02:21→17:32)
[2018-04-04] MEDS: Levothyroxine 25 MCG TABLET PO SCH (06:00)
[2018-04-04] MEDS: MethylPREDNISolone 40 MG/ML VIAL IVP SCH ×2 (06:01→17:29)
[2018-04-04 06:45] LABS: Basophils % 0.1 %; Hematocrit 39.8 % (37.5-50.1); Hemoglobin 12.4 g/dL (12.9-16.9); Immature Granulocytes % 0.6 % (0-4); Lymphocytes # 0.6 K/mcL (0.6-4.6); Lymphocytes % 5.1 %; Mean Corpuscular HGB Conc 31.2 g/dL (31.6-35.5); Mean Corpuscular Hemoglobin 30.2 pg (28.0-33.3); Mean Corpuscular Volume 97.1 fL (83.0-100.0); Mean Platelet Volume 10.7 fL (9.4-12.4); Monocytes # 0.6 K/mcL (0.0-1.3); Monocytes % 4.8 %; Platelet Count 195 K/mcL (140-400); Red Cell Distribution Width 18.3 % (11.5-14.5); Segmented Neutrophils % 89.4 %
[2018-04-04 06:51] LABS: INR 4.2
[2018-04-04 06:54] LABS: Prothrombin Time 47.5 Seconds (9.4-12.1)
[2018-04-04 07:02] LABS: Calcium 7.8 mg/dL (8.6-10.3); Potassium 3.7 mEq/L (3.5-5.1)
[2018-04-04] MEDS ORDERED: Furosemide 40 MG/4 ML VIAL IVP SCH (08:00)
[2018-04-04] MEDS: Lisinopril 20 MG TABLET PO SCH (09:35)
[2018-04-04] MEDS: Metoprolol 100 MG TABLET PO SCH ×2 (09:35→20:08)
[2018-04-04] MEDS: Aspirin Enteric Coated 81 MG Tablet PO SCH (09:35)
--- NOTE | 2018-04-04 11:05 | Pulmonology Progress Note ---
Date of Encounter: 04/04/18 Time of Encounter: 07:45 Assessment and Plan (1) Pneumonia Current Visit: Yes Status: Acute Patient clinically feels much better and he is still coagulopathic and resumed his diet since no procedure is planned to be done. Patient is also not interested in having any procedure and he is asking when he can go home. We will sign off and patient can follow-up as outpatient in about 6-[address] chest prior to that visit. Thank you for consultation and please call for any questions Qualifiers: Pneumonia type: due to unspecified organism Laterality: unspecified laterality Lung location: unspecified part of lung Qualified Code(s): J18.9 - Pneumonia, unspecified organism (2) Supratherapeutic INR Current Visit: Yes Status: Acute Subjective Principal diagnosis: SOB Interval history: Patient feels much better and denies any hemoptysis and he is asking if he can go home Objective PUL Vital signs: Last Vital Signs Temp 97.8 F 04/04/18 06:45 Pulse 117 04/04/18 09:35 Resp 18 04/04/18 07:20 BP 136/86 04/04/18 09:35 Pulse Ox 94 04/04/18 09:35 General: Patient is in no acute distress. HEENT: Normocephalic atraumatic, pupils are equal round and reactive to light and accommodation, anicteric sclera, nares is patent, mucous membranes moist, no JVD, trachea is midline Cardiovascular: Regular S1 and S2 audible, no murmur or rubs Respiratory: Scattered rhonchi to auscultation bilaterally. No acute distress. No wheezing. Patient not using accessory muscles. Abdomen: Soft, nontender, nondistended, positive bowel sounds in all 4 quadrants Extremities: Warm, dry, no lower extremity edema. Normal capillary refill. Neuro: Alert and oriented and follows commands. Grossly no neuro deficits. Skin: Warm to touch : No obvious abnormalities. Psych: Normal Results - Laboratory Findings CBC and BMP: 04/04/18 06:20 04/04/18 06:20 PT/INR, D-dimer PT 47.5 Seconds (9.4-12.1) H* 04/04/18 06:20 Abnormal lab findings: Abnormal lab results WBC 12.3 K/mcL (4.3-11.1) H D 04/04/18 06:20 RBC 4.10 M/mcL (4.19-5.50) L 04/04/18 06:20 Hgb 12.4 g/dL (12.9-16.9) L 04/04/18 06:20 MCHC 31.2 g/dL (31.6-35.5) L 04/04/18 06:20 RDW 18.3 % (11.5-14.5) H 04/04/18 06:20 Neutrophils # 11.0 K/mcL (1.6-8.9) H 04/04/18 06:20 PT 47.5 Seconds (9.4-12.1) H* 04/04/18 06:20 APTT 46.2 Seconds (26.0-36.0) H 04/02/18 09:28 BUN 34 mg/dL (8-23) H 04/04/18 06:20 Creatinine 1.93 mg/dL (0.70-1.30) H 04/04/18 06:20 Est GFR ( Amer) 40 (> 60) L 04/04/18 06:20 Est GFR (Non-Af Amer) 33 (> 60) L 04/04/18 06:20 Glucose 138 mg/dL (70-105) H 04/04/18 06:20 Calculated Osmolality 304 (280-300) H 04/04/18 06:20 Calcium 7.8 mg/dL (8.6-10.3) L 04/04/18 06:20 Phosphorus 2.5 mg/dL (2.7-4.5) L 04/02/18 09:28 Magnesium 1.1 mg/dL (1.6-2.6) L 04/02/18 09:28 Troponin I 0.34 ng/mL (< 0.04) H* 04/03/18 04:18 B-Natriuretic Peptide 454 pg/mL (Less than 100) H 04/03/18 04:18 Albumin 3.0 g/dL (3.5-5.7) L 04/02/18 09:28 Globulin 3.8 g/dL (2.4-3.5) H 04/02/18 09:28 Albumin/Globulin Ratio 0.8 (1.1-2.2) L 04/02/18 09:28 Ur Specific Constantia 1.008 (1.010-1.025) L 04/02/18 09:56 Urine Protein 30 mg/dL (Neg-Trace) H 04/02/18 09:56 Urine Blood Small (Negative) H 04/02/18 09:56 Urine Microscopic RBC 5-15 per hpf (0-3) H 04/02/18 09:56 Urine Microscopic WBC 5-15 per hpf (0-3) H 04/02/18 09:56 Ur Squamous Epith Cells Many per lpf (None-Few) H 04/02/18 09:56 - Microbiology Findings Microbiology Findings: Microbiology, Last 48 Hours 04/03/18 03:21 Legionella Antigen - Final Urine,Clean Catch 04/03/18 03:21 Streptococcus pneumoniae Antigen (M - Final Urine,Clean Catch 04/02/18 09:22 Blood Culture - Preliminary Peripheral Venipuncture Culture is incubating and being continuously monitored for growth. Final report to follow. 04/02/18 09:28 Blood Culture - Preliminary Peripheral Venipuncture Culture is incubating and being continuously monitored for growth. Final report to follow. - Clinical Findings Intake & Output: Intake & Output 04/03/18 04/04/18 04/04/18 23:59 07:59 15:59 Intake Total 1070 / 1070 100 / 100 Output Total 650 / 650 250 / 250 250 / 250 Balance 420 / 420 -150 / -150 -250 / -250 Weight 74.9 kg Consult Discharge Plan - Plan Referrals: Travon Cardenas DO [Primary Care Provider] -
[2018-04-04] MEDS: Nitroglycerin 25 MG/250 ML INFUS..BTL IVC SCH (13:27)
[2018-04-04] MEDS: Azithromycin 500 MG in D5% in Water 250 ML IVPB SCH (14:40)
--- NOTE | 2018-04-04 16:50 | Discharge Summary ---
- NOTES TO OUTPATIENT PROVIDER Notes to Outpatient Provider: PCP in [address] Rios out pt in 6 to 8 weeks. Nephrology out pt in 1 to 2 weeks Orders not resulted at time of discharge: Pending orders 04/02/18 08:53 EKG [ECG 12 lead ECG] [ECG] Stat 04/02/18 09:22 Culture,Blood [BC] Stat 04/02/18 13:30 Culture,Sputum with Gram Stain [RM] Stat 04/05/18 04:00 Basic Metabolic Panel AM 0400 Complete Blood Count [HEME] AM 0400 Prothrombin Time INR [COAG] AM 0400 Date of Encounter: 04/05/18 Time of Encounter: 16:16 - Discharge Diagnosis (1) Acute and chronic respiratory failure Priority: Primary Status: Acute Assessment and Plan: Multifactorial due to COPD, PNA, and volume overload state. CTA chest showing evidence of multifocal PNA. Also given Lasix 40 mg IV times one in ED and was ordered lasix 40 mg BID but Cr elevl went up so Lasix held. Case discussed with Dr. Fink and he has agreed to see pt in consult. Pt was in ICU 04/02/18 and sent to the floor 04/03/2018. Started on Vancomycin and Zosyn in ED. switched to Zithromax and Zosyn. Will DC on Zithromax and omnicef for a few more days. Sputum for culture so far no growth. Improved on BiPAP. Pt's oxygen sat dropped to 84% on room air with increased activity. Pt qualified for home oxygen. CTA chest 04/02/18 showed moderate R pleural effusion. Repeat chest x ray 04/04/18, showing some improvement in pulmonary congestion and slight decrease in R pleural effusion. Effusion possibly multifactorial from volume overload and infection. Discussed with pulmonology and will hold off on thoracenthesis for now. Will DC on home oxygen and he will follow up pt with Dr. Rios for further management. Pt advised to continue scheduled Duoneb and steroid taper for now. Will dc on Zithromax and omnicef. Qualifiers: Respiratory failure complication: unspecified whether with hypoxia or hypercapnia Qualified Code(s): J96.20 - Acute and chronic respiratory failure, unspecified whether with hypoxia or hypercapnia (2) Hypoxia Priority: Primary Status: Acute Assessment and Plan: Slowly improved on BiPAP, however pt's oxygen dropped to 84% on room air with minimal activity. He qualified for home oxygen. Will follow up out pt with pulmonology for further management. See above (3) Pneumonia Priority: Primary Status: Acute Assessment and Plan: Continues to improve. On IV Zithromax and Zosyn. Sputum culture incubating. Strep and legionella negative. Will DC on few more days of Zithromax and Omnicef. Qualifiers: Pneumonia type: due to unspecified organism Laterality: unspecified laterality Lung location: unspecified part of lung Qualified Code(s): J18.9 - Pneumonia, unspecified organism (4) Volume overload Priority: Primary Status: Acute Assessment and Plan: Held Lasix due to worsening renal function. However, Cr is about pt's baseline. Recommend continue to hold Lasix for now and follow up out pt with nephrology for repeat labs. Chest x ray 04/04/18 XR/XR chest 2V IMPRESSION: Interval resolution of pulmonary vascular congestion and edema. Persistent right pleural effusion which appears slightly decreased Qualifiers: Qualified Code(s): E87.70 - Fluid overload, unspecified (5) COPD exacerbation Priority: Secondary Status: Acute Assessment and Plan: On Duo nebs Q 4 Hrs scheduled and PRN. Will place on steroid taper. Pulmonology consulted and follow out pt. Discharging on nebs and oxygen as well as steroid taper. (6) Chronic atrial fibrillation Priority: Secondary Status: Acute Assessment and Plan: Documented hx of Afib but pt denied prior history of this but record showed hx of chronic afib. He is also on Coumadin but on hold due to elevated INR. INR was as high as 6.7 but down to 2.8 today. Will rsume 1/2 dose Coumadin due to pt being discharged on zithromax. Will request blood draw by home health aide for INR and BMP and to send results to PCP. Seen by cardiology as well. (7) Coagulopathy Priority: Primary Status: Acute Assessment and Plan: INR 5.6 and was as high as 6.7. So far no evidence of blood loss of acute bleed. Hgb 11.7 and currently stable. Will need INR drawn out pt by [facility] services. Will resume Coumadin at half dose. Held off on vitamin K 5 mg PO. (8) CKD (chronic kidney disease) stage 3, GFR 30-59 ml/min Priority: Secondary Status: Chronic Assessment and Plan: Will consult nephrology due to small window for correction with diuretic and potential to develop JAKE/CKD. Was on Lasix 40 mg IV BID but held due to increasing Cr level. Seen by nephrology and states continue Lisinopril, hold lasix, and volume overload resolved. Pt will need to follow up out pt for repeat BMP by [facility] services and needs follow up out pt by nephrology. (9) HTN (hypertension) Priority: Secondary Status: Chronic Assessment and Plan: Metoprolol, Norvasc and Benzapril Qualifiers: Hypertension type: essential hypertension Qualified Code(s): I10 - Essential (primary) hypertension (10) HLD (hyperlipidemia) Priority: Secondary Status: Chronic Assessment and Plan: Lovastatin Qualifiers: Hyperlipidemia type: pure hypercholesterolemia Qualified Code(s): E78.00 - Pure hypercholesterolemia, unspecified; E78.0 - Pure hypercholesterolemia Hospital course: History of present illness: Mr. Levi is a 87 year old male with past medical history of previous strokes 2 in 2008 2013, GERD, hypothyroidism, COPD (not on home O2) peripheral vascular disease, AAA, carotid stenosis , chronic A. fib (on Coumadin 4mg ) , chronic kidney disease, HLD, and HTN who presents to the ED because of shortness of breath. Patient states his symptoms started around thanksgiving. He states he was coughing. He reports that he had been to his PCP 3 times. States he was given antibiotic and had chest x ray done. He states is cough never resolved. HE also reports having chest pain and SOB. He denies having fever or chills. He is a former smoker and quit 10 years ago. He does have COPD and takes Ventolin HFA but it did not seem tj help with his symptoms. Pt's is at his bedside. According to hospital records, pt was treated for URI on 02/20/2018and completed course of Amoxycillin 875 mg for 7 days. He denies any orthopnea, PND, does endorse some having difficulty walking 2 blocks for the last couple weeks. Patient denies any chest pain, diarrhea vomiting or nausea. Dr. Suresh See A/P for hospital course Discharge discussed with: patient - Time Spent with Patient Total time spent providing and/or coordinating discharge services: Greater than 30 minutes - Discharge Medications Home Medications: Aspirin [Lo-Dose Aspirin EC] 81 mg PO DAILY 04/02/17 [History] Metoprolol [Lopressor] 200 mg PO DAILY 04/02/17 [History] Omeprazole [PriLOSEC] 40 mg PO DAILY 04/02/17 [History] Amlodipine Besylate/Benazepril [Lotrel 5-20 mg Capsule] 1 each PO DAILY 04/03/17 [History] Lovastatin 40 mg PO HS 04/03/17 [History] Albuterol Sulfate [Ventolin Hfa] 2 puff IH Q6H PRN 04/02/18 [History] Levothyroxine [Synthroid] 25 mcg PO DAILY 04/02/18 [History] Multivitamin [One Daily Essential] 1 tab PO DAILY 04/02/18 [History] Azithromycin [Zithromax] 500 mg PO DAILY 6 Days #6 tablet 04/05/18 [Rx] Cefdinir [Omnicef] 300 mg PO DAILY 6 Days #6 capsule 04/05/18 [Rx] Ipratropium/Albuterol Neb [Duoneb] 3 ml IH [id number] 30 Days #30 inhsol 04/05/18 [Rx] PredniSONE [Deltasone] See Taper PO 7XD #21 tablet 04/05/18 [Rx] Warfarin [Coumadin] 2 mg PO DAILY 30 Days #30 tablet 04/05/18 [Rx] Allergies/Adverse Reactions: Allergy/AdvReac Type Severity Reaction Status Date / Time No Known Allergies Allergy Verified 09/27/15 05:31 Date of admission: 04/02/18 13:30 Primary care physician: Travon Cardenas Consults: 04/02/18 11:21 Consult to Pulmonology [CONS] Stat Consulting Provider: [facility] Reason for Consult: multifocal PNA, suspected mucous plug Call Completed: Yes 04/02/18 13:30 Consult to Nurse Navigator [CONS] Routine Comment: 04/02/18 16:41 Consult to Cardiology [CONS] Stat Comment: Consulting Provider: Cardiology Carolyn Reason for Consult: AFIB RVR, ELEVATED TROPS Call Completed: Yes Discharging clinician: Nahomi Suresh Anticipated date of discharge: 04/04/18 - Constitutional Vitals: Temp Pulse Resp BP Pulse Ox 97.8 F 117 18 136/86 97 04/04/18 06:45 04/04/18 09:35 04/04/18 15:52 04/04/18 09:35 04/04/18 15:52 General appearance: Present: A&O X 3 Exam: Gen.: Vitals noted. No acute distress. Alert, awake and oriented * [address], and time, well developed, well-nourished resting comfortably in bed. no resp distress HEENT: oropharynx clear, Normocephalic, atraumatic, MMM. Neck: supple, no JVD, no lymphadenopathy, no carotid bruit. Cardiac: Irregular, BLE edema resolved, PMI non-displaced Pulmonary:occasional expiratory wheezes , decreased breath sounds bilaterally, no rales or rhonchi. Abdomen: soft, nontender, BS noted, no guarding, mildly distended. No orga nomegaly, no pulsatile masses, Back: no Bilateral flank tenderness, no suprapubic pain Skin: warm and dry, no visible lesions. Feels warm, clammy, no rashes, no lesions, no erythema MSK: ROM not assessed. no joint swelling noted, gait not assessed while in bed. Non tender calf or clubbing, no cyanosis/clubbing. Bilateral edema resolved. Neuro: A&O, moves all extremities, no focal deficits, sensation intact Psych: Appropriate mood and behavior, normal speech. - Patient Status Disposition: Home Health Service Condition: Fair Overall status at discharge: patient is progressing back to baseline - Discharge Instructions Follow Up With: Travon Cardenas DO [Primary Care Provider] - 04/11/18 11:00 am - Diet and Activity Activity: as per physical therapy, increase activity as tolerated Diet: diabetic diet, low fat, low cholesterol, low salt diet
[2018-04-04] MEDS ORDERED: *HR* Phytonadione 5 MG TABLET PO ONE (16:53)
[2018-04-05] MEDS: Piperacillin/Tazobactam 3.375 GM in 0.9 % Sodium Chloride Mini Bag 100 ML IVPB SCH ×2 (02:06→09:15)
[2018-04-05] MEDS: Ipratropium/Albuterol Neb 3 ML IH SCH ×3 (04:12→11:28)
[2018-04-05] MEDS: MethylPREDNISolone 40 MG/ML VIAL IVP SCH (05:28)
[2018-04-05] MEDS: Levothyroxine 25 MCG TABLET PO SCH (05:28)
[2018-04-05 05:34] LABS: Basophils % 0.1 %; Hematocrit 37.5 % (37.5-50.1); Hemoglobin 11.7 g/dL (12.9-16.9); Immature Granulocytes % 0.5 % (0-4); Lymphocytes # 0.4 K/mcL (0.6-4.6); Lymphocytes % 4.2 %; Mean Corpuscular HGB Conc 31.2 g/dL (31.6-35.5); Mean Corpuscular Hemoglobin 29.8 pg (28.0-33.3); Mean Corpuscular Volume 95.4 fL (83.0-100.0); Mean Platelet Volume 10.5 fL (9.4-12.4); Monocytes # 0.4 K/mcL (0.0-1.3); Monocytes % 4.8 %; Neutrophils # 8.3 K/mcL (1.6-8.9); Platelet Count 184 K/mcL (140-400); Red Blood Count 3.93 M/mcL (4.19-5.50); Red Cell Distribution Width 17.8 % (11.5-14.5); Segmented Neutrophils % 90.4 %
[2018-04-05 05:43] LABS: INR 2.8; Prothrombin Time 31.8 Seconds (9.4-12.1)
[2018-04-05 06:42] LABS: Calcium 7.6 mg/dL (8.6-10.3); Potassium 3.7 mEq/L (3.5-5.1)
[2018-04-05] MEDS: Aspirin Enteric Coated 81 MG Tablet PO SCH (09:15)
[2018-04-05] MEDS: Lisinopril 20 MG TABLET PO SCH (09:16)
[2018-04-05] MEDS: Metoprolol 100 MG TABLET PO SCH (09:16)
--- NOTE | 2018-04-05 09:22 | Internal Med Progress Note ---
Hospitalist Progress Note - Encounter Date of Encounter: 04/04/18 Time of Encounter: 09:21 - Subjective Interval History: Pt requesting to go home. He states he is feeling much better. Still requiring oxygen with activity. States he and his would go to the [facility] prior to this happening. He denies chest pain. He denies fever, chills, N/V or diarrhea. Cough improving. - Exam Vitals: Temp Pulse Resp BP Pulse Ox 98.1 F 84 18 157/89 93 04/05/18 07:34 04/05/18 07:34 04/05/18 07:41 04/05/18 07:34 04/05/18 07:41 Exam: Gen.: Vitals noted. No acute distress. Alert, awake and oriented * 3 [address], place, and time, well developed, well-nourished resting comfortably in bed. no resp distress HEENT: oropharynx clear, Normocephalic, atraumatic, MMM. Neck: supple, no JVD, no lymphadenopathy, no carotid bruit. Cardiac: Irregular, BLE edema resolving, PMI non-displaced Pulmonary:occasional expiratory wheezes , decreased breath sounds bilaterally, no rales or rhonchi. Abdomen: soft, nontender, BS noted, no guarding, mildly distended. No organomegaly, no pulsatile masses, Back: no Bilateral flank tenderness, no suprapubic pain Skin: warm and dry, no visible lesions. Feels warm, clammy, no rashes, no lesions, no erythema MSK: ROM not assessed. no joint swelling noted, gait not assessed while in bed. Non tender calf or clubbing, no cyanosis/clubbing. Bilateral edema resolving. Neuro: A&O, moves all extremities, no focal deficits, sensation intact Psych: Appropriate mood and behavior, normal speech. - Assessment and Plan (1) Acute and chronic respiratory failure Current Visit: Yes Status: Acute Assessment and Plan: Multifactorial due to COPD, PNA, and volume overload state. CTA chest showing evidence of multifocal PNA. Also given Lasix 40 mg IV times one in ED and was ordered lasix 40 mg BID but Cr elevl went up so Lasix held. Case discussed with Dr. Fink and he has agreed to see pt in consult. Pt was in ICU 04/02/18 and sent to the floor 04/03/2018. Started on Vancomycin and Zosyn in ED. switched to Zithromax and Zosyn. Will DC on Zithromax and omnicef for a few more days. Sputum for culture so far no growth. Improved on BiPAP. Pt's oxygen sat dropped to 84% on room air with increased activity. Pt will need qualified for home oxygen. CTA chest 04/02/18 showed moderate R pleural effusion. Will repeat chest x ray 04/04/2018 (2) Hypoxia Current Visit: Yes Status: Acute Assessment and Plan: Slowly improved on BiPAP, however pt's oxygen dropped to 84% on room air with minimal activity. Will assess for home oxygen. Pulmonology following. See above (3) Pneumonia Current Visit: Yes Status: Acute Assessment and Plan: Continues to improve. On IV Zithromax and Zosyn. Sputum culture incubating. Strep and legionella negative. Will DC on few more days of Zithromax and Omnicef. (4) Volume overload Current Visit: Yes Status: Acute Assessment and Plan: Held Lasix due to worsening renal function. However, Cr is about pt's baseline. Consulting nephrology for assistance Recommend continue to hold Lasix for now. Not in Lasix at home (5) COPD exacerbation Current Visit: Yes Status: Acute Assessment and Plan: On Duo nebs Q 4 Hrs scheduled and PRN. Pulmonology consulted and following. On nebs and oxygen as well as steroid taper. (6) Chronic atrial fibrillation Current Visit: Yes Status: Acute Assessment and Plan: Documented hx of Afib but pt denied prior history of this but record showed hx of chronic afib. He is also on Coumadin but on hold due to elevated INR. INR was as high as 6.7 but down to 4.2 today. Seen by cardiology as well. (7) Coagulopathy Current Visit: Yes Status: Acute Assessment and Plan: INR 5.6 and was as high as 6.7. So far no evidence of blood loss of acute bleed. Hgb 12.4 and currently stable. Will check INR in am (8) CKD (chronic kidney disease) stage 3, GFR 30-59 ml/min Current Visit: No Status: Chronic Assessment and Plan: Will consult nephrology due to small window for correction with diuretic and potential to develop JAKE/CKD. Was on Lasix 40 mg IV BID but held due to increasing Cr level. Seen by nephrology and states continue Lisinopril, hold lasix, and volume overload resolved. Pt will need to follow up out pt for repeat BMP by [facility] services and needs follow up out pt by nephrology. (9) HTN (hypertension) Current Visit: No Status: Chronic Assessment and Plan: Metoprolol, Norvasc and Benzapril (10) HLD (hyperlipidemia) Current Visit: No Status: Chronic Assessment and Plan: Lovastatin DVT Prophylaxis: Coumadin on hold - Summary of Assessment and Plan Summary of Assessment and Plan: History of present illness: Dr. Suresh Mr. Levi is a 87 year old male with past medical history of previous strokes 2 in 2008 2013, GERD, hypothyroidism, COPD (not on home O2) peripheral vascular disease, AAA, carotid stenosis , chronic A. fib (on Coumadin 4mg ) , chronic kidney disease, HLD, and HTN who presents to the ED because of shortness of breath. Patient states his symptoms started around thanksgiving. He states he was coughing. He reports that he had been to his PCP 3 times. States he was given antibiotic and had chest x ray done. He states is cough never resolved. HE also reports having chest pain and SOB. He denies having fever or chills. He is a former smoker and quit 10 years ago. He does have COPD and takes Ventolin HFA but it did not seem tj help with his symptoms. Pt's is at his bedside. According to hospital records, pt was treated for URI on 02/20/2018and completed course of Amoxycillin 875 mg for 7 days. He denies any orthopnea, PND, does endorse some having difficulty walking 2 blo cks for the last couple weeks. Patient denies any chest pain, diarrhea vomiting or nausea. - Time Spent with Patient Total time spent is greater than 50% in coordination of care (as documented) at patient's floor/unit and/or counseling patient: less than 15 minutes Plan of Care Discussed with: patient Internal Medicine: Result - Labs CBC & Chem 7: 04/05/18 04:25 04/05/18 04:25 Labs: Short CBC 04/05/18 Range/Units 04:25 WBC 9.2 (4.3-11.1) K/mcL Hgb 11.7 L (12.9-16.9) g/dL Hct 37.5 (37.5-50.1) % Plt Count 184 (140-400) K/mcL Neutrophils # 8.3 (1.6-8.9) K/mcL BMP 04/05/18 04:25 Sodium 142 Potassium 3.7 Chloride 106 Carbon Dioxide 24 BUN 41 H Creatinine 1.97 H Glucose 121 H Calcium 7.6 L - ABG Interpretation ABG results: PT/INR, D-dimer PT 31.8 Seconds (9.4-12.1) H 04/05/18 04:25 - Impressions Impressions Chest X-Ray 04/04/18 16:22 IMPRESSION: Interval resolution of pulmonary vascular congestion and edema. Persistent right pleural effusion which appears slightly decreased D/ / Jose Myers MD / Jose Myers MD Interpreting Provider: Jose Myers MD Consult Discharge Plan - Plan Referrals: Travon Cardenas DO [Primary Care Provider] - 04/11/18 11:00 am Prescriptions: Ipratropium/Albuterol Neb [Duoneb] 3 ml IH [id number] 30 Days #30 inhsol Azithromycin [Zithromax] 500 mg PO DAILY 6 Days #6 tablet Cefdinir [Omnicef] 300 mg PO DAILY 6 Days #6 capsule PredniSONE [Deltasone] See Taper PO 7XD #21 tablet Warfarin [Coumadin] 2 mg PO DAILY 30 Days #30 tablet (1) Acute and chronic respiratory failure Qualifiers: Respiratory failure complication: unspecified whether with hypoxia or hypercapnia Qualified Code(s): J96.20 - Acute and chronic respiratory failure, unspecified whether with hypoxia or hypercapnia (3) Pneumonia Qualifiers: Pneumonia type: due to unspecified organism Laterality: unspecified laterality Lung location: unspecified part of lung Qualified Code(s): J18.9 - Pneumonia, unspecified organism (4) Volume overload Qualifiers: Qualified Code(s): E87.70 - Fluid overload, unspecified (9) HTN (hypertension) Qualifiers: Hypertension type: essential hypertension Qualified Code(s): I10 - Essential (primary) hypertension (10) HLD (hyperlipidemia) Qualifiers: Hyperlipidemia type: pure hypercholesterolemia Qualified Code(s): E78.00 - Pure hypercholesterolemia, unspecified; E78.0 - Pure hypercholesterolemia
--- NOTE | 2018-04-05 10:39 | Nephrology Consult Note ---
Date of Encounter: 04/05/18 Time of Encounter: 10:00 Assessment and Plan (1) CKD (chronic kidney disease) stage 3, GFR 30-59 ml/min Current Visit: No Status: Chronic Patient reports that he sees Dr. Knight outpatient for his CKD stage 3. Last appointment was in January. Creatinine 1.97 today from 1.48 on admission at 04/02/18 BUN 41 today from 16 on admission at 04/02/18 GFR 32 today from 45 on admission at 04/02/18 potassium 3.7 today from 3.6 on admission at 04/02/18 bicarb 24 today from 21 on admission at 04/02/18. Renal function is trending down and subsequently Lasix was held to help improve renal function. Continue monitoring I&O, IVF fluids, avoid nephrotoxins, renally dose medications. Continue lisinopril and monitor renal function, adding Lasix back is fine from renal perspective (2) HTN (hypertension) Current Visit: No Status: Chronic BP was 157/89 on 0734 04/05/18. Patient placed on Lisinopril 20mg PO daily; lasix held due to worsening renal function. Patient takes Lotrel at home along with Lopressor. Continue treating with Lisinopril and Metoprolol and monitor renal function. Adding Lasix back is okay from renal perspective. Qualifiers: Qualified Code(s): I10 - Essential (primary) hypertension (3) Volume overload Current Visit: Yes Status: Acute Patient was noted to be volume overloaded at time of admission, was given lasix which was subsequently held due to decreasing renal function (Creatinine 1.48 04/02/18 increased to 1.97 on 04/05/18). Continue monitoring I&O and renal function. Continue cardiac diet. Volume overload appears to be resolved; continuing lasix is fine from renal perspective Qualifiers: Qualified Code(s): E87.70 - Fluid overload, unspecified (4) Elevated troponin Current Visit: Yes Status: Acute History of Present Illness - Reason for Consult Consult date: 04/05/18 Chronic Kidney Disease Requesting physician: Nahomi Suresh - Chief Complaint SOB - History of Present Illness Mr. Levi is a pleasant 87 year old male who was seen bedside with son and in room for "shortness of breath" secondary to pneumonia with PMH of AFib, CVA x2, AAA, HLD, HTN, CKD stage 3. Patient reports that his pneumonia is significantly better today than it was on admission, and that it felt like "a train ran over his chest" when he was admitted. He notes that he sees Dr. Knight for outpatient nephrology treatment of his stage 3 CKD. Patient notes that he has no complaints currently and was very pleasant. Patient admits shortness of breath, nonproductive cough and irregular heartbeat and denies fever, chills, nausea, vomiting, diarrhea, constipation, abdominal pain, chest pain, palpitations, hemoptysis, urinary changes, burning on urination, blood in urine, frothy urine. Past Med Surg Social Fam HX - Past Medical History Medical history: atrial fibrillation, CVA, hyperlipidemia, hypertension, renal disease, other Additional medical history: irregular heart beat Psychiatric history: no psych history - Past Surgical History Surgical History: cholecystectomy Additional surgical history: abd aorta aneurysm. left femoral stent - Social History Smoking Status: Former smoker Smokeless Tobacco Status: No Alcohol use: none Drug use: none - Family History Father Family Member Ethnicity: Non- Living Status: Hx Family Cardiac Disorders: Yes (Stroke) Mother Family Member Ethnicity: Non- Living Status: Hx Family Respiratory Disorders: Yes (Pneumonia) Brother Family Member Ethnicity: Non- Living Status: Hx Family Cardiac Disorders: Yes ([place], CAD) Sister Family Member Ethnicity: Non- Living Status: Hx Family Cancer: Yes (Pancreatic) Medications and Allergies Aspirin [Lo-Dose Aspirin EC] 81 mg PO DAILY 04/02/17 [History] Metoprolol [Lopressor] 200 mg PO DAILY 04/02/17 [History] Omeprazole [PriLOSEC] 40 mg PO DAILY 04/02/17 [History] Amlodipine Besylate/Benazepril [Lotrel 5-20 mg Capsule] 1 each PO DAILY 04/03/17 [History] Lovastatin 40 mg PO HS 04/03/17 [History] Albuterol Sulfate [Ventolin Hfa] 2 puff IH Q6H PRN 04/02/18 [History] Levothyroxine [Synthroid] 25 mcg PO DAILY 04/02/18 [History] Multivitamin [One Daily Essential] 1 tab PO DAILY 04/02/18 [History] Azithromycin [Zithromax] 500 mg PO DAILY 6 Days #6 tablet 04/05/18 [Rx] Cefdinir [Omnicef] 300 mg PO DAILY 6 Days #6 capsule 04/05/18 [Rx] Ipratropium/Albuterol Neb [Duoneb] 3 ml IH [id number] 30 Days #30 inhsol 04/05/18 [Rx] PredniSONE [Deltasone] See Taper PO 7XD #21 tablet 04/05/18 [Rx] Warfarin [Coumadin] 2 mg PO DAILY 30 Days #30 tablet 04/05/18 [Rx] Allergy/AdvReac Type Severity Reaction Status Date / Time No Known Allergies Allergy Verified 09/27/15 05:31 Review of Systems Constitutional: no chills, no fever(s) Cardiovascular: no chest pain, no palpitations Respiratory: cough, dyspnea Gastrointestinal: no abdominal pain, no constipation, no diarrhea Genitourinary Male: no change in urinary stream, no difficulty urinating, no dysuria, no flank pain, no hematuria, no urinary frequency, no urinary hesitancy, no urinary urgency Exam - Vital Signs Vital signs: Initial Vital Signs Temp Pulse Resp BP Pulse Ox 97.6 F 130 26 187/112 95 04/02/18 08:42 04/02/18 08:42 04/02/18 08:42 04/02/18 08:42 04/02/18 08:42 Vital Signs - Last 8 Hours Temp Pulse Resp BP Pulse Ox 04/05/18 07:41 18 93 04/05/18 07:34 98.1 F 84 17 157/89 94 04/05/18 04:12 18 93 04/05/18 03:34 98.2 F 79 16 150/87 93 Intake and Output 04/04/18 04/05/18 04/05/18 23:59 07:59 15:59 Intake Total 350 / 350 620 / 620 Output Total 100 / 100 525 / 525 250 / 250 Balance 250 / 250 95 / 95 -250 / -250 Intake: IV Fluids 350 / 350 100 / 100 Zithromax 500 mg In Dextrose 5% 250 / 250 250 ML @ 252 mls/hr IVPB Q24H [facility] Rx#:[id number] Zosyn 3.375 GM In 0.9 % Sodium 100 / 100 100 / 100 Chloride (Mini-Bag +) 100 ML @ 25 mls/hr IVPB Q8H [facility] Rx#: [id number] Oral 0 / 0 520 / 520 Output: Urine 100 / 100 525 / 525 250 / 250 Other: # Bowel Movements 0 0 Weight 75.2 kg Patient Weight 04/05/18 23:59 Weight 75.2 kg - General Appearance Exam: General: AAO, in no acute distress, pleasant HEENT: normocephalic, atraumatic CV: irregularly irregular, S1 & S2 present, no murmurs, no LE edema Resp: Bilateral mild rhonchi noted, no wheezes, no accessory muscle use GI: soft, nontender, nondistended, no guarding. Bowel sounds present Neuro: A&Ox3, no focal deficits noted Psych: normal affect & behavior Results - Lab Results 04/05/18 04:25 04/05/18 04:25 Most recent lab results Calcium 7.6 mg/dL (8.6-10.3) L 04/05/18 04:25 Phosphorus 2.5 mg/dL (2.7-4.5) L 04/02/18 09:28 Magnesium 1.1 mg/dL (1.6-2.6) L 04/02/18 09:28 Consult Discharge Plan - Plan Referrals: Travon Cardenas DO [Primary Care Provider] - 04/11/18 11:00 am Prescriptions: Ipratropium/Albuterol Neb [Duoneb] 3 ml IH [id number] 30 Days #30 inhsol Azithromycin [Zithromax] 500 mg PO DAILY 6 Days #6 tablet Cefdinir [Omnicef] 300 mg PO DAILY 6 Days #6 capsule PredniSONE [Deltasone] See Taper PO 7XD #21 tablet Warfarin [Coumadin] 2 mg PO DAILY 30 Days #30 tablet
[2018-04-05 12:35] VITALS: BP 154/96
[2018-04-05] MEDS: Azithromycin 500 MG in D5% in Water 250 ML IVPB SCH (13:55)
--- NOTE | 2018-04-05 14:08 | Physician Discharge Referral ---
Home Health/Hosp Referral Info Transfer to: Home Health Provider in Charge Post Discharge: PCP - Diagnosis (1) Acute and chronic respiratory failure Priority: Primary Status: Acute (2) Hypoxia Priority: Primary Status: Acute (3) Pneumonia Priority: Primary Status: Acute (4) Volume overload Priority: Secondary Status: Acute (5) COPD exacerbation Priority: Secondary Status: Acute (6) Chronic atrial fibrillation Priority: Secondary Status: Acute (7) Coagulopathy Priority: Secondary Status: Acute (8) CKD (chronic kidney disease) stage 3, GFR 30-59 ml/min Priority: Secondary Status: Chronic (9) HTN (hypertension) Priority: Secondary Status: Chronic (10) HLD (hyperlipidemia) Priority: Secondary Status: Chronic - Respiratory Orders Oxygen / L per min Smoking Cessation: Smoking cessation has been advised. For more information, call the [employer] Quit Line at 6-049-KNFR-NOW. - Diet/Nutrition Diet/Nutrition Orders: Cardiac, No Concentrated Sweets - Services Needed Following services are medically necessary services: Nursing, Home Health Aide, Physical Therapy, Occupational Therapy Other Treatments: Needs PT/INR and BMP blood work draw. Diagnosis coagulopathy and CKD Send results to PCP - Transfer Medications Prescriptions: Ipratropium/Albuterol Neb [Duoneb] 3 ml IH [id number] 30 Days #30 inhsol Azithromycin [Zithromax] 500 mg PO DAILY 6 Days #6 tablet Cefdinir [Omnicef] 300 mg PO DAILY 6 Days #6 capsule PredniSONE [Deltasone] See Taper PO 7XD #21 tablet Warfarin [Coumadin] 2 mg PO DAILY 30 Days #30 tablet Home Medications: Aspirin [Lo-Dose Aspirin EC] 81 mg PO DAILY 04/02/17 [History] Metoprolol [Lopressor] 200 mg PO DAILY 04/02/17 [History] Omeprazole [PriLOSEC] 40 mg PO DAILY 04/02/17 [History] Amlodipine Besylate/Benazepril [Lotrel 5-20 mg Capsule] 1 each PO DAILY 04/03/17 [History] Lovastatin 40 mg PO HS 04/03/17 [History] Albuterol Sulfate [Ventolin Hfa] 2 puff IH Q6H PRN 04/02/18 [History] Levothyroxine [Synthroid] 25 mcg PO DAILY 04/02/18 [History] Multivitamin [One Daily Essential] 1 tab PO DAILY 04/02/18 [History] Azithromycin [Zithromax] 500 mg PO DAILY 6 Days #6 tablet 04/05/18 [Rx] Cefdinir [Omnicef] 300 mg PO DAILY 6 Days #6 capsule 04/05/18 [Rx] Ipratropium/Albuterol Neb [Duoneb] 3 ml IH [id number] 30 Days #30 inhsol 04/05/18 [Rx] PredniSONE [Deltasone] See Taper PO 7XD #21 tablet 04/05/18 [Rx] Warfarin [Coumadin] 2 mg PO DAILY 30 Days #30 tablet 04/05/18 [Rx] Allergies/Adverse Reactions: Allergy/AdvReac Type Severity Reaction Status Date / Time No Known Allergies Allergy Verified 09/27/15 05:31 Certification: Further, I certify that my clinical findings support that this patient is homebound (i.e. absences from home require considerable and taxing effort and are for medical reasons or mosque services or infrequently or short duration when for other reasons) because: Homebound Reason: Patient requires assistance of a person or device to safely leave home Attestation: My signature below is to certify that this patient is under my care and that I, or nurse practitioner, or a physician's psychologist research assistant working with me, has a [id number] encounter with this patient.
[2018-04-05] MEDS ORDERED: *HR* Warfarin 2 MG TABLET PO ONE (18:00)
[2018-04-05] MEDS ORDERED: Warfarin perPT PO PRN (18:00)
== END 2018-04-05 16:41 | disposition home health service (06) | DRG 189 ==
LOC: EMEROOARM 08:38 → ICNU 08:38 → 3NENU 04-03 23:19 → 3ANU 04-04 12:53
PROVIDERS: ADMIT Internal Medicine; ATTEND Internal Medicine